=== PATIENT | female | born 1940 | race African-American/Black ===

== ENCOUNTER 2019-09-04 19:36 | Inpatient (IN) ==
[2019-09-04] MEDS ORDERED: FUROSEMIDE 100 MG/10 ML VIAL IV STA (20:06)
[2019-09-04 20:15] LABS: Basophils % 0.2 % (0.0-0.8); Eosinophils # 0.1 10*3/uL (0.0-0.87); Eosinophils % 0.6 % (0.00-10.9); Immature Granulocytes % 0.5 %; Immature Granulocytes Absolute 0.05 #; Lymphocytes # 0.8 10*3/uL (1.4-4.0); Mean Corpuscular HGB Conc 33.3 GM/DL (32-36); Mean Corpuscular Volume 96.4 FL (87-102); Mean Platelet Volume 10.9 FL (9.6-12.0); Monocytes % 8.6 % (1.7-12.7); Neutrophils % 82.1 % (38.7-73.9); Platelet Count 189 T/CUMM (130-400); Red Blood Count 2.49 MC/CUMM (3.8-5.5); White Blood Count 9.5 T/CUMM (4-12)
[2019-09-04 20:33] LABS: Albumin 3.1 G/DL (3.4-5.0); Bilirubin,Total 0.4 MG/DL (0.2-1.0); Calcium 8.6 MG/DL (8.5-10.1); Osmolality,Calculated 273.5 MOS/KG (273-304); Total Protein 6.9 G/DL (6.4-8.3)
[2019-09-04] MEDS ORDERED: DEXTROSE 50% 25 GM/50 ML VIAL IV STA (20:59)
[2019-09-04] MEDS ORDERED: INSULIN REGULAR 100 UNIT/ML IV STA (21:01)
[2019-09-04] MEDS ORDERED: DEXTROSE 50% 25 GM/50 ML SYRINGE IV ONE (21:27)
[2019-09-04] MEDS ORDERED: ACETAMINOPHEN 325 MG TABLET PO PRN (22:13)
[2019-09-04] MEDS ORDERED: ONDANSETRON 4 MG/2 ML VIAL IV PRN (22:13)
[2019-09-04] MEDS ORDERED: DOCUSATE SODIUM 100 MG CAPSULE PO PRN (22:13)
[2019-09-04] MEDS ORDERED: hydrALAZINE 20 MG/1 ML VIAL IV PRN (22:13)
[2019-09-04] MEDS ORDERED: SODIUM BICARBONATE 50 MEQ/50 ML VIAL IV ONE (22:18)
[2019-09-04] MEDS ORDERED: LORazepam 2 MG/1 ML VIAL IV PRN (22:33)
[2019-09-05 02:17] LABS: Basophils % 0.2 % (0.0-0.8); Eosinophils % 0.4 % (0.00-10.9); Hematocrit 24.3 VOL% (35.7-47.0); Hemoglobin 7.9 GM/DL (12.0-16.0); Immature Granulocytes % 0.5 %; Immature Granulocytes Absolute 0.04 #; Lymphocytes # 0.5 10*3/uL (1.4-4.0); Lymphocytes % 6.2 % (21.3-54.2); Mean Corpuscular HGB Conc 32.5 GM/DL (32-36); Mean Platelet Volume 10.4 FL (9.6-12.0); Monocytes % 8.6 % (1.7-12.7); Neutrophils % 84.1 % (38.7-73.9); Platelet Count 169 T/CUMM (130-400); Red Blood Count 2.48 MC/CUMM (3.8-5.5); Red Cell Distribution Width 14.1 % (9.3-17.3); White Blood Count 8.4 T/CUMM (4-12)
[2019-09-05 02:51] LABS: Calcium 8.7 MG/DL (8.5-10.1); Osmolality,Calculated 272.6 MOS/KG (273-304); Risk Ratio 1.27; Thyroid Stimulating Hormone 17.2 uIU/ml (0.358-3.74); VLDL CHOLESTEROL 9.2 MG/DL
[2019-09-05] MEDS ORDERED: FOLIC ACID 0.4 MG TABLET PO SCH (09:00)
[2019-09-05] MEDS: MULTIVITAMIN (CENTRUM) TABLET PO SCH (09:01)
[2019-09-05] MEDS: THIAMINE 100 MG TABLET PO SCH (09:01)
[2019-09-05 10:26] LABS: CKMB % 1.1 %
[2019-09-05 10:29] LABS: Troponin I 0.046 NG/ML (0.00-0.045)
[2019-09-05] MEDS ORDERED: MAGNESIUM SULF RIDER 2 GM in PREMIX 1 EACH IV ONE (10:46)
[2019-09-05] MEDS: amLODIPine 10 MG TABLET PO SCH (11:33)
[2019-09-05] MEDS: SODIUM BICARBONATE 650 MG TABLET PO SCH ×2 (12:23→20:22)
[2019-09-05 13:13] LABS: Apearance,Urine Slightly Hazy (Clear); Bacteria,Urine Occasional /HPF (Few); Bilirubin,Urine Negative (Negative); Blood, Urine Negative (Negative); Glucose,Urine (UA) Negative (Negative); Hyaline Casts,Urine 5 /LPF (0-3); Ketones,Urine Negative (Negative); Mucus,Urine Occasional /LPF (Occasional); Nitrite,Urine Negative (Negative); Protein,Urine Negative; Squamous Epithelial Cell,Urine Occasional /HPF (0-10); Urine Color Yellow (Yellow); Urine Urobilinogen < 2.0 EU/DL (0.2-1.0); WBC,Urine 10 /HPF (0-6)
[2019-09-05 14:06] LABS: Microalbum Ur Quant Random 78.9 MG/L (0-20); Microalbum/Creat Ratio Random 125.2 RATIO (0-30)
[2019-09-05] MEDS: FERROUS SULFATE 325 MG TABLET PO SCH ×2 (14:43→20:23)
[2019-09-05] MEDS: hydrALAZINE 25 MG TABLET PO SCH ×2 (14:43→20:23)
[2019-09-05] MEDS: cloNIDine 0.1 MG TABLET PO SCH ×2 (14:43→20:23)
[2019-09-05] MEDS: cefTRIAXone 1,000 MG in SYRINGE 1 EACH IV SCH (15:29)
[2019-09-05] MEDS: DULoxetine 30 MG CAPSULE PO SCH (20:22)
[2019-09-05] MEDS: METOPROLOL TARTRATE 50 MG TABLET PO SCH (20:23)
[2019-09-06 04:56] LABS: Basophils % 0.1 % (0.0-0.8); Eosinophils # 0.2 10*3/uL (0.0-0.87); Eosinophils % 2.5 % (0.00-10.9); Hematocrit 22.5 VOL% (35.7-47.0); Hemoglobin 7.6 GM/DL (12.0-16.0); Immature Granulocytes % 0.6 %; Immature Granulocytes Absolute 0.04 #; Lymphocytes % 13.7 % (21.3-54.2); Mean Corpuscular HGB Conc 33.8 GM/DL (32-36); Mean Corpuscular Volume 95.3 FL (87-102); Mean Platelet Volume 10.5 FL (9.6-12.0); Neutrophils % 72.1 % (38.7-73.9); Platelet Count 159 T/CUMM (130-400); Red Blood Count 2.36 MC/CUMM (3.8-5.5); Red Cell Distribution Width 14.1 % (9.3-17.3); White Blood Count 7.1 T/CUMM (4-12)
[2019-09-06 05:19] LABS: Osmolality,Calculated 284.9 MOS/KG (273-304)
[2019-09-06] MEDS: LEVOTHYROXINE 25 MCG TABLET PO SCH (06:22)
[2019-09-06] MEDS: hydrALAZINE 25 MG TABLET PO SCH ×3 (09:47→21:00)
[2019-09-06] MEDS: DULoxetine 30 MG CAPSULE PO SCH ×2 (09:47→21:00)
[2019-09-06] MEDS: FOLIC ACID 1 MG TABLET PO SCH (09:47)
[2019-09-06] MEDS: THIAMINE 100 MG TABLET PO SCH (09:47)
[2019-09-06] MEDS: MULTIVITAMIN (CENTRUM) TABLET PO SCH (09:47)
[2019-09-06] MEDS: cloNIDine 0.1 MG TABLET PO SCH ×3 (09:47→21:00)
[2019-09-06] MEDS: FERROUS SULFATE 325 MG TABLET PO SCH ×3 (09:47→21:00)
[2019-09-06] MEDS: SODIUM BICARBONATE 650 MG TABLET PO SCH ×2 (09:47→21:00)
[2019-09-06] MEDS: amLODIPine 10 MG TABLET PO SCH (09:47)
[2019-09-06] MEDS: cefTRIAXone 1,000 MG in SYRINGE 1 EACH IV SCH (15:58)
[2019-09-06] MEDS: LORazepam 2 MG/1 ML VIAL IV PRN (20:33)
[2019-09-06] MEDS: METOPROLOL TARTRATE 50 MG TABLET PO SCH (21:00)
[2019-09-07] MEDS: LORazepam 2 MG/1 ML VIAL IV PRN ×2 (00:20→04:55)
[2019-09-07 03:44] LABS: Basophils % 0.2 % (0.0-0.8); Eosinophils # 0.1 10*3/uL (0.0-0.87); Eosinophils % 0.8 % (0.00-10.9); Hemoglobin 8.1 GM/DL (12.0-16.0); Immature Granulocytes % 0.7 %; Immature Granulocytes Absolute 0.06 #; Lymphocytes # 0.6 10*3/uL (1.4-4.0); Mean Corpuscular HGB Conc 32.4 GM/DL (32-36); Mean Corpuscular Volume 98.8 FL (87-102); Mean Platelet Volume 11.4 FL (9.6-12.0); Monocytes % 9.6 % (1.7-12.7); Neutrophils % 82.7 % (38.7-73.9); Platelet Count 188 T/CUMM (130-400); Red Blood Count 2.53 MC/CUMM (3.8-5.5); Red Cell Distribution Width 14.2 % (9.3-17.3); White Blood Count 9.2 T/CUMM (4-12)
[2019-09-07 03:59] LABS: Calcium 9.6 MG/DL (8.5-10.1); Osmolality,Calculated 288.7 MOS/KG (273-304)
[2019-09-07] MEDS: LEVOTHYROXINE 25 MCG TABLET PO SCH (05:40)
[2019-09-07] MEDS: hydrALAZINE 25 MG TABLET PO SCH ×3 (09:54→21:16)
[2019-09-07] MEDS: MULTIVITAMIN (CENTRUM) TABLET PO SCH (09:55)
[2019-09-07] MEDS: cloNIDine 0.1 MG TABLET PO SCH ×3 (09:55→21:16)
[2019-09-07] MEDS: DULoxetine 30 MG CAPSULE PO SCH ×2 (09:55→21:16)
[2019-09-07] MEDS: FOLIC ACID 1 MG TABLET PO SCH (09:56)
[2019-09-07] MEDS: amLODIPine 10 MG TABLET PO SCH (09:56)
[2019-09-07] MEDS: FERROUS SULFATE 325 MG TABLET PO SCH ×3 (09:56→21:16)
[2019-09-07] MEDS: THIAMINE 100 MG TABLET PO SCH (09:57)
[2019-09-07] MEDS: SODIUM BICARBONATE 650 MG TABLET PO SCH ×2 (09:57→21:17)
[2019-09-07 13:09] LABS: Apearance,Urine CLEAR (Clear); Bacteria,Urine Occasional /HPF (Few); Bilirubin,Urine Negative (Negative); Blood, Urine Negative (Negative); Glucose,Urine (UA) Negative (Negative); Ketones,Urine 5 mg/dL (Negative); Nitrite,Urine Negative (Negative); Protein,Urine 30 MG/DL; RBC,Urine 1 /HPF (0-4); Squamous Epithelial Cell,Urine Occasional /HPF (0-10); Urine Color Yellow (Yellow); Urine Specific Gravity 1.012 (1.001-1.035); Urine Urobilinogen < 2.0 EU/DL (0.2-1.0); WBC,Urine 2 /HPF (0-6)
[2019-09-07] MEDS: cefTRIAXone 1,000 MG in SYRINGE 1 EACH IV SCH (16:59)
[2019-09-07] MEDS: METOPROLOL TARTRATE 50 MG TABLET PO SCH (21:16)
[2019-09-08 03:20] LABS: Basophils % 0.4 % (0.0-0.8); Eosinophils # 0.2 10*3/uL (0.0-0.87); Eosinophils % 2.6 % (0.00-10.9); Hematocrit 24.5 VOL% (35.7-47.0); Hemoglobin 7.7 GM/DL (12.0-16.0); Immature Granulocytes % 0.4 %; Immature Granulocytes Absolute 0.03 #; Lymphocytes # 0.6 10*3/uL (1.4-4.0); Lymphocytes % 9.1 % (21.3-54.2); Mean Corpuscular HGB Conc 31.4 GM/DL (32-36); Mean Platelet Volume 11.6 FL (9.6-12.0); Monocytes % 10.5 % (1.7-12.7); Red Blood Count 2.45 MC/CUMM (3.8-5.5); Red Cell Distribution Width 14.4 % (9.3-17.3)
[2019-09-08 03:21] LABS: Platelet Count 147 T/CUMM (130-400)
[2019-09-08 03:40] LABS: Calcium 9.4 MG/DL (8.5-10.1); Osmolality,Calculated 294.2 MOS/KG (273-304)
[2019-09-08 03:42] LABS: Hypochromasia 2+; Platelet Estimate Normal
[2019-09-08] MEDS: LEVOTHYROXINE 25 MCG TABLET PO SCH (06:16)
[2019-09-08] MEDS ORDERED: chlordiazePOXIDE 10 MG CAPSULE PO PRN (08:18)
[2019-09-08] MEDS: THIAMINE 100 MG TABLET PO SCH (08:27)
[2019-09-08] MEDS: hydrALAZINE 25 MG TABLET PO SCH ×3 (08:27→21:49)
[2019-09-08] MEDS: SODIUM BICARBONATE 650 MG TABLET PO SCH ×2 (08:27→21:49)
[2019-09-08] MEDS: FOLIC ACID 1 MG TABLET PO SCH (08:27)
[2019-09-08] MEDS: amLODIPine 10 MG TABLET PO SCH (08:28)
[2019-09-08] MEDS: DULoxetine 30 MG CAPSULE PO SCH ×2 (08:28→21:49)
[2019-09-08] MEDS: MULTIVITAMIN (CENTRUM) TABLET PO SCH (08:28)
[2019-09-08] MEDS: FERROUS SULFATE 325 MG TABLET PO SCH ×3 (08:28→21:49)
[2019-09-08] MEDS: cloNIDine 0.1 MG TABLET PO SCH ×3 (08:28→21:49)
[2019-09-08] MEDS: cefTRIAXone 1,000 MG in SYRINGE 1 EACH IV SCH (15:46)
[2019-09-08] MEDS: METOPROLOL TARTRATE 50 MG TABLET PO SCH (21:49)
[2019-09-09] MEDS: LEVOTHYROXINE 25 MCG TABLET PO SCH (05:31)
[2019-09-09 08:42] LABS: Basophils % 0.6 % (0.0-0.8); Eosinophils # 0.1 10*3/uL (0.0-0.87); Eosinophils % 2.7 % (0.00-10.9); Hematocrit 23.5 VOL% (35.7-47.0); Hemoglobin 7.3 GM/DL (12.0-16.0); Immature Granulocytes % 0.4 %; Immature Granulocytes Absolute 0.02 #; Lymphocytes # 0.8 10*3/uL (1.4-4.0); Lymphocytes % 15.7 % (21.3-54.2); Mean Corpuscular HGB Conc 31.1 GM/DL (32-36); Mean Corpuscular Volume 101.3 FL (87-102); Mean Platelet Volume 10.8 FL (9.6-12.0); Monocytes % 11.4 % (1.7-12.7); Neutrophils % 69.2 % (38.7-73.9); Platelet Count 185 T/CUMM (130-400); Red Blood Count 2.32 MC/CUMM (3.8-5.5); Red Cell Distribution Width 14.6 % (9.3-17.3); White Blood Count 5.1 T/CUMM (4-12)
[2019-09-09 08:58] LABS: Calcium 9.2 MG/DL (8.5-10.1); Osmolality,Calculated 300.7 MOS/KG (273-304)
[2019-09-09] MEDS: amLODIPine 10 MG TABLET PO SCH (09:07)
[2019-09-09] MEDS: FOLIC ACID 1 MG TABLET PO SCH (09:07)
[2019-09-09] MEDS: FERROUS SULFATE 325 MG TABLET PO SCH (09:07)
[2019-09-09] MEDS: THIAMINE 100 MG TABLET PO SCH (09:07)
[2019-09-09] MEDS: cloNIDine 0.1 MG TABLET PO SCH (09:07)
[2019-09-09] MEDS: SODIUM BICARBONATE 650 MG TABLET PO SCH (09:07)
[2019-09-09] MEDS: DULoxetine 30 MG CAPSULE PO SCH (09:07)
[2019-09-09] MEDS: hydrALAZINE 25 MG TABLET PO SCH (09:07)
[2019-09-09] MEDS: MULTIVITAMIN (CENTRUM) TABLET PO SCH (09:07)
[2019-09-09 12:01] VITALS: BP 141/68
== END 2019-09-09 12:53 | disposition home health service (06) | DRG 291 ==
LOC: EDUNIT# → EDBD → N.ED 19:36 → N.EDINP 21:53 → N.TELES 22:25
PROVIDERS: ADMIT Internal Medicine; ATTEND Internal Medicine

== ENCOUNTER 2019-10-21 16:55 | Inpatient (IN) ==
[2019-10-21] MEDS ORDERED: MORPHINE 4 MG/1 ML VIAL IV STA (17:25)
[2019-10-21] MEDS ORDERED: FUROSEMIDE 40 MG/4 ML VIAL IV STA (17:25)
[2019-10-21] MEDS ORDERED: THIAMINE 200 MG/2 ML VIAL IV STA (17:27)
[2019-10-21 17:58] LABS: Basophils % 0.1 % (0.0-0.8); Eosinophils % 0.1 % (0.00-10.9); Hematocrit 25.5 VOL% (35.7-47.0); Hemoglobin 8.3 GM/DL (12.0-16.0); Immature Granulocytes % 1.2 %; Immature Granulocytes Absolute 0.14 #; Lymphocytes % 8.7 % (21.3-54.2); Mean Corpuscular HGB Conc 32.5 GM/DL (32-36); Mean Corpuscular Volume 93.4 FL (87-102); Monocytes % 3.1 % (1.7-12.7); Neutrophils % 86.8 % (38.7-73.9); Platelet Count 254 T/CUMM (130-400); Red Blood Count 2.73 MC/CUMM (3.8-5.5); Red Cell Distribution Width 15.9 % (9.3-17.3); White Blood Count 11.5 T/CUMM (4-12)
[2019-10-21] MEDS ORDERED: PIPERACILLIN/TAZOBACTAM 3,375 MG in SODIUM CHLORIDE 0.9% 100 ML IV STA (18:02)
[2019-10-21 18:19] LABS: Albumin 2.4 G/DL (3.4-5.0); Bilirubin,Total 0.4 MG/DL (0.2-1.0); Calcium 8.2 MG/DL (8.5-10.1); Osmolality,Calculated 286.4 MOS/KG (273-304); Total Protein 6.5 G/DL (6.4-8.3)
[2019-10-21 18:24] LABS: PT Patient Result 10.4 SECS (9.8-11.9); Partial Thromboplastin Time 23.9 SECS (23.9-33.8)
[2019-10-21] MEDS ORDERED: MAGNESIUM SULF RIDER 4 GM in PREMIX 1 EACH IV PRN (19:45)
[2019-10-21] MEDS ORDERED: ACETAMINOPHEN 325 MG TABLET PO PRN (19:45)
[2019-10-21] MEDS ORDERED: ONDANSETRON 4 MG/2 ML VIAL IV PRN (19:45)
[2019-10-21] MEDS ORDERED: GLUCAGON 1 MG VIAL IM PRN ×2 (19:45)
[2019-10-21] MEDS ORDERED: MAGNESIUM SULF RIDER 2 GM in PREMIX 1 EACH IV PRN (19:45)
[2019-10-21] MEDS ORDERED: DEXTROSE 10% 250 ML BAG IV PRN (19:45)
[2019-10-21] MEDS ORDERED: DEXTROSE 50% 25 GM/50 ML VIAL IV PRN (19:45)
[2019-10-21] MEDS: INSULIN LISPRO 100 UNIT/ML SUBCUT SCH (22:10)
[2019-10-21] MEDS: HEPARIN 5,000 UNIT/1 ML VIAL SUBCUT SCH (22:40)
[2019-10-21] MEDS: cefTRIAXone 1,000 MG in SYRINGE 1 EACH IV SCH (22:41)
[2019-10-21] MEDS: LORazepam 2 MG/1 ML VIAL IV PRN (22:44)
[2019-10-21] MEDS: AZITHROMYCIN INJ 500 MG in SODIUM CHLORIDE 0.9% 250 ML IV SCH (22:46)
[2019-10-22 06:36] LABS: Basophils % 0.3 % (0.0-0.8); Eosinophils % 0.1 % (0.00-10.9); Immature Granulocytes Absolute 0.08 #; Lymphocytes # 0.9 10*3/uL (1.4-4.0); Mean Corpuscular HGB Conc 33.3 GM/DL (32-36); Mean Corpuscular Volume 93.4 FL (87-102); Mean Platelet Volume 10.6 FL (9.6-12.0); Monocytes % 1.9 % (1.7-12.7); Neutrophils % 85.7 % (38.7-73.9); Platelet Count 197 T/CUMM (130-400); Red Blood Count 2.57 MC/CUMM (3.8-5.5); Red Cell Distribution Width 15.7 % (9.3-17.3)
[2019-10-22 07:06] LABS: Calcium 8.4 MG/DL (8.5-10.1); Osmolality,Calculated 288.8 MOS/KG (273-304); Risk Ratio 1.54; VLDL CHOLESTEROL 23.6 MG/DL
[2019-10-22] MEDS ORDERED: FUROSEMIDE 20 MG/2 ML VIAL IV SCH (08:00)
[2019-10-22] MEDS: PANTOPRAZOLE 40 MG TABLET PO SCH (08:40)
[2019-10-22] MEDS: INSULIN LISPRO 100 UNIT/ML SUBCUT SCH ×4 (08:42→21:43)
[2019-10-22] MEDS: HEPARIN 5,000 UNIT/1 ML VIAL SUBCUT SCH ×2 (08:43→20:49)
[2019-10-22] MEDS: guaiFENesin/DM ER 600-30 MG TABLET PO SCH ×2 (09:55→20:50)
[2019-10-22] MEDS: LORazepam 2 MG/1 ML VIAL IV PRN ×2 (10:55→20:51)
[2019-10-22] MEDS: AZITHROMYCIN INJ 500 MG in SODIUM CHLORIDE 0.9% 250 ML IV SCH (20:50)
[2019-10-22] MEDS ORDERED: VECURONIUM 10 MG VIAL IV ONE (21:14)
[2019-10-22] MEDS ORDERED: ROCURONIUM 100 MG/10 ML VIAL IV ONE (21:15)
[2019-10-22] MEDS ORDERED: ETOMIDATE 20 MG/10 ML VIAL IV ONE (21:15)
[2019-10-22] MEDS: METOPROLOL TARTRATE 50 MG TABLET PO SCH (21:53)
[2019-10-22] MEDS ORDERED: METOPROLOL TARTRATE 5 MG/5 ML VIAL IV ONE ×2 (22:06→22:09)
[2019-10-22] MEDS: cefTRIAXone 1,000 MG in SYRINGE 1 EACH IV SCH (22:19)
[2019-10-23] MEDS: LORazepam 2 MG/1 ML VIAL IV PRN ×3 (00:20→09:00)
[2019-10-23] MEDS: ALBUTEROL INHALER 18 GM INH SCH ×5 (00:22→20:12)
[2019-10-23] MEDS ORDERED: cloNIDine 0.1 MG TABLET PO ONE (02:41)
[2019-10-23] MEDS ORDERED: HALOPERIDOL 5 MG/ML AMP IV ONE (04:29)
[2019-10-23] MEDS ORDERED: LABETALOL 20 MG/4 ML SYRINGE IV PRN (04:30)
[2019-10-23] MEDS ORDERED: HALOPERIDOL 5 MG/ML AMP ONE (04:33)
[2019-10-23] MEDS: LEVOTHYROXINE 25 MCG TABLET PO SCH (05:39)
[2019-10-23 08:26] LABS: ABG Base Excess 11.9 MMOL/L (-2.5-2.5); ABG HCO3 36.2 MMOL/L (20-26); ABG Oxygen Saturation 83.9 % (95-100); ABG PCO2 46.3 MM HG (35-48); ABG PH 7.511 (7.35-7.45); ABG PO2 47.4 MM HG (80-95); ABG TCO2 37.6 MMOL/L (23-27); Allen Test Positive; Pt O2 Delivery Device Other
[2019-10-23] MEDS: INSULIN LISPRO 100 UNIT/ML SUBCUT SCH ×3 (08:30→17:24)
[2019-10-23] MEDS: HEPARIN 5,000 UNIT/1 ML VIAL SUBCUT SCH ×2 (08:33→20:12)
[2019-10-23] MEDS: LABETALOL 20 MG/4 ML SYRINGE IV PRN ×2 (08:34→09:20)
[2019-10-23] MEDS ORDERED: AZITHROMYCIN 250 MG TABLET PO SCH (09:00)
[2019-10-23] MEDS ORDERED: FUROSEMIDE 40 MG/4 ML VIAL IV ONE (09:22)
[2019-10-23 09:30] LABS: Apearance,Urine CLEAR (Clear); Bilirubin,Urine Negative (Negative); Blood, Urine Moderate mg/dL (Negative); Glucose,Urine (UA) Negative (Negative); Ketones,Urine Negative (Negative); Nitrite,Urine Negative (Negative); Protein,Urine 100 MG/DL; RBC,Urine 57 /HPF (0-4); Squamous Epithelial Cell,Urine Occasional /HPF (0-10); Urine Color Straw (Yellow); Urine Specific Gravity 1.008 (1.001-1.035); Urine Urobilinogen < 2.0 EU/DL (0.2-1.0); WBC,Urine 27 /HPF (0-6)
[2019-10-23] MEDS: PIPERACILLIN/TAZOBACTAM 3,375 MG in SODIUM CHLORIDE 0.9% 100 ML IV SCH ×2 (10:03→21:18)
[2019-10-23] MEDS: amLODIPine 10 MG TABLET PO SCH (10:23)
[2019-10-23] MEDS: guaiFENesin/DM ER 600-30 MG TABLET PO SCH ×2 (10:23→20:12)
[2019-10-23] MEDS: PANTOPRAZOLE 40 MG TABLET PO SCH (10:24)
[2019-10-23 11:03] LABS: Basophils % 0.2 % (0.0-0.8); Eosinophils % 0.1 % (0.00-10.9); Hemoglobin 9.2 GM/DL (12.0-16.0); Immature Granulocytes % 1.1 %; Immature Granulocytes Absolute 0.16 #; Lymphocytes # 0.6 10*3/uL (1.4-4.0); Lymphocytes % 4.1 % (21.3-54.2); Mean Corpuscular HGB Conc 31.7 GM/DL (32-36); Mean Platelet Volume 11.9 FL (9.6-12.0); Monocytes % 1.5 % (1.7-12.7); Platelet Count 210 T/CUMM (130-400); Red Blood Count 2.99 MC/CUMM (3.8-5.5); White Blood Count 14.4 T/CUMM (4-12)
[2019-10-23] MEDS: HALOPERIDOL 5 MG/ML AMP IV PRN ×2 (11:05→22:50)
[2019-10-23 11:23] LABS: Anisocytosis 1+; Band Neutrophils 16 % (0-10); Hypochromasia 1+; Lymphocytes 4 % (20-55); Macrocytosis 1+; Platelet Estimate Normal; Segmented Neutrophils 78 % (50-85); Total Cells Counted 100
[2019-10-23] MEDS ORDERED: FUROSEMIDE 40 MG/4 ML VIAL IV SCH (11:30)
[2019-10-23 11:38] LABS: Albumin 2.2 G/DL (3.4-5.0); Bilirubin,Total 0.6 MG/DL (0.2-1.0); Calcium 9.3 MG/DL (8.5-10.1); Osmolality,Calculated 287.7 MOS/KG (273-304); Total Protein 7.4 G/DL (6.4-8.3)
[2019-10-23] MEDS ORDERED: VANCOMYCIN INJ 1,250 MG in SODIUM CHLORIDE 0.9% 250 ML IV ONE (15:00)
[2019-10-23] MEDS: methylPREDNISolone SOD SUC 125 MG/2 ML VIAL IV SCH ×2 (15:30→21:18)
[2019-10-23] MEDS: PANTOPRAZOLE 40 MG VIAL IV SCH (20:12)
[2019-10-23] MEDS: METOPROLOL TARTRATE 50 MG TABLET PO SCH (20:12)
[2019-10-24] MEDS: INSULIN LISPRO 100 UNIT/ML SUBCUT SCH ×5 (00:42→23:58)
[2019-10-24] MEDS: ALBUTEROL INHALER 18 GM INH SCH ×4 (00:42→18:24)
[2019-10-24] MEDS: methylPREDNISolone SOD SUC 125 MG/2 ML VIAL IV SCH ×3 (06:15→21:15)
[2019-10-24] MEDS: LEVOTHYROXINE 25 MCG TABLET PO SCH (06:15)
[2019-10-24] MEDS: HALOPERIDOL 5 MG/ML AMP IV PRN ×2 (06:45→21:35)
[2019-10-24 07:34] LABS: Calcium 9.7 MG/DL (8.5-10.1); Osmolality,Calculated 299.4 MOS/KG (273-304)
[2019-10-24] MEDS: guaiFENesin/DM ER 600-30 MG TABLET PO SCH ×2 (08:22→20:50)
[2019-10-24] MEDS: amLODIPine 10 MG TABLET PO SCH (08:22)
[2019-10-24] MEDS: PANTOPRAZOLE 40 MG VIAL IV SCH (08:23)
[2019-10-24] MEDS: HEPARIN 5,000 UNIT/1 ML VIAL SUBCUT SCH (08:26)
[2019-10-24] MEDS ORDERED: VANCOMYCIN INJ 1,250 MG in SODIUM CHLORIDE 0.9% 250 ML IV PRN (09:00)
[2019-10-24] MEDS: PIPERACILLIN/TAZOBACTAM 3,375 MG in SODIUM CHLORIDE 0.9% 100 ML IV SCH (09:48)
[2019-10-24] MEDS: metOLazone 5 MG TABLET PO SCH (11:30)
[2019-10-24] MEDS: ENOXAPARIN 100 MG/ML SYRINGE SUBCUT SCH (18:24)
[2019-10-24] MEDS: METOPROLOL TARTRATE 50 MG TABLET PO SCH (20:50)
[2019-10-24] MEDS: MEROPENEM 500 MG in SODIUM CHLORIDE 0.9% 100 ML IV SCH (21:14)
[2019-10-25] MEDS: ALBUTEROL INHALER 18 GM INH SCH ×4 (00:40→18:05)
[2019-10-25 03:35] LABS: ABG Base Excess 8.9 MMOL/L (-2.5-2.5); ABG HCO3 33.6 MMOL/L (20-26); ABG Oxygen Saturation 97.6 % (95-100); ABG PCO2 47.6 MM HG (35-48); ABG PH 7.466 (7.35-7.45); ABG PO2 108.5 MM HG (80-95); Allen Test Positive; Pt O2 Delivery Device BIPAP
[2019-10-25] MEDS: INSULIN LISPRO 100 UNIT/ML SUBCUT SCH ×3 (07:23→17:24)
[2019-10-25 07:33] LABS: Basophils % 0.1 % (0.0-0.8); Hematocrit 26.7 VOL% (35.7-47.0); Hemoglobin 8.5 GM/DL (12.0-16.0); Immature Granulocytes % 0.7 %; Immature Granulocytes Absolute 0.12 #; Lymphocytes # 0.6 10*3/uL (1.4-4.0); Lymphocytes % 3.4 % (21.3-54.2); Mean Corpuscular HGB Conc 31.8 GM/DL (32-36); Mean Corpuscular Volume 95.4 FL (87-102); Mean Platelet Volume 11.7 FL (9.6-12.0); Monocytes % 2.5 % (1.7-12.7); Neutrophils % 93.3 % (38.7-73.9); Platelet Count 183 T/CUMM (130-400); Red Cell Distribution Width 16.1 % (9.3-17.3); White Blood Count 18.2 T/CUMM (4-12)
[2019-10-25 07:38] LABS: Calcium 9.7 MG/DL (8.5-10.1); Osmolality,Calculated 307.1 MOS/KG (273-304)
[2019-10-25] MEDS: methylPREDNISolone SOD SUC 125 MG/2 ML VIAL IV SCH ×3 (07:50→21:04)
[2019-10-25] MEDS: LEVOTHYROXINE 25 MCG TABLET PO SCH (07:56)
[2019-10-25 07:58] LABS: Anisocytosis 1+; Band Neutrophils 5 % (0-10); Lymphocytes 4 % (20-55); Macrocytosis 1+; Platelet Estimate Normal; Segmented Neutrophils 87 % (50-85); Total Cells Counted 100
[2019-10-25] MEDS: guaiFENesin/DM ER 600-30 MG TABLET PO SCH ×2 (08:24→21:04)
[2019-10-25] MEDS: amLODIPine 10 MG TABLET PO SCH (08:25)
[2019-10-25] MEDS: metOLazone 5 MG TABLET PO SCH (08:25)
[2019-10-25] MEDS: PANTOPRAZOLE 40 MG VIAL IV SCH (08:27)
[2019-10-25] MEDS: MEROPENEM 500 MG in SODIUM CHLORIDE 0.9% 100 ML IV SCH ×2 (08:34→21:04)
[2019-10-25] MEDS: METOPROLOL TARTRATE 50 MG TABLET PO SCH ×2 (11:20→21:04)
[2019-10-25] MEDS: ENOXAPARIN 100 MG/ML SYRINGE SUBCUT SCH (17:32)
[2019-10-26] MEDS: INSULIN LISPRO 100 UNIT/ML SUBCUT SCH ×4 (00:09→17:54)
[2019-10-26] MEDS: ALBUTEROL INHALER 18 GM INH SCH ×5 (00:09→18:50)
[2019-10-26] MEDS: HALOPERIDOL 5 MG/ML AMP IV PRN ×2 (02:14→05:37)
[2019-10-26] MEDS: LABETALOL 20 MG/4 ML SYRINGE IV PRN (05:37)
[2019-10-26] MEDS: methylPREDNISolone SOD SUC 125 MG/2 ML VIAL IV SCH (05:38)
[2019-10-26] MEDS: LEVOTHYROXINE 25 MCG TABLET PO SCH (05:42)
[2019-10-26 05:52] LABS: Basophils % 0.1 % (0.0-0.8); Hematocrit 27.1 VOL% (35.7-47.0); Hemoglobin 8.5 GM/DL (12.0-16.0); Immature Granulocytes % 1.4 %; Immature Granulocytes Absolute 0.22 #; Lymphocytes # 0.6 10*3/uL (1.4-4.0); Lymphocytes % 3.6 % (21.3-54.2); Mean Corpuscular HGB Conc 31.4 GM/DL (32-36); Mean Corpuscular Volume 96.8 FL (87-102); Mean Platelet Volume 11.8 FL (9.6-12.0); Monocytes % 3.1 % (1.7-12.7); Neutrophils % 91.8 % (38.7-73.9); Platelet Count 193 T/CUMM (130-400); Red Cell Distribution Width 16.4 % (9.3-17.3); White Blood Count 16.2 T/CUMM (4-12)
[2019-10-26 06:22] LABS: Hypochromasia 1+; Lymphocytes 2 % (20-55); Myelocytes 1 %; Segmented Neutrophils 96 % (50-85); Total Cells Counted 100
[2019-10-26 06:23] LABS: Macrocytosis 1+; Platelet Estimate Adequate; Target Cells 1+
[2019-10-26] MEDS: MEROPENEM 500 MG in SODIUM CHLORIDE 0.9% 100 ML IV SCH (09:06)
[2019-10-26] MEDS: PANTOPRAZOLE 40 MG VIAL IV SCH (09:27)
[2019-10-26] MEDS: METOPROLOL TARTRATE 50 MG TABLET PO SCH ×2 (09:28→20:49)
[2019-10-26] MEDS: metOLazone 5 MG TABLET PO SCH (09:28)
[2019-10-26] MEDS: guaiFENesin/DM ER 600-30 MG TABLET PO SCH ×2 (09:28→20:49)
[2019-10-26] MEDS: amLODIPine 10 MG TABLET PO SCH (09:28)
[2019-10-26] MEDS ORDERED: cloNIDine 0.3 MG/24 HR PATCH TRANSDERM SCH (16:26)
[2019-10-26] MEDS: ENOXAPARIN 100 MG/ML SYRINGE SUBCUT SCH (17:26)
[2019-10-26 18:27] LABS: Osmolality,Calculated 319.8 MOS/KG (273-304)
[2019-10-27] MEDS: ALBUTEROL INHALER 18 GM INH SCH ×4 (00:23→17:24)
[2019-10-27] MEDS: INSULIN LISPRO 100 UNIT/ML SUBCUT SCH ×5 (00:23→23:27)
[2019-10-27 03:46] LABS: ABG Base Excess 5.7 MMOL/L (-2.5-2.5); ABG HCO3 29.5 MMOL/L (20-26); ABG Oxygen Saturation 94.4 % (95-100); ABG PCO2 45.4 MM HG (35-48); ABG PH 7.437 (7.35-7.45); ABG PO2 74.3 MM HG (80-95); ABG TCO2 28.2 MMOL/L (23-27)
[2019-10-27 05:37] LABS: Basophils % 0.1 % (0.0-0.8); Hematocrit 26.3 VOL% (35.7-47.0); Hemoglobin 8.1 GM/DL (12.0-16.0); Immature Granulocytes % 2.2 %; Immature Granulocytes Absolute 0.39 #; Lymphocytes # 1.1 10*3/uL (1.4-4.0); Lymphocytes % 6.1 % (21.3-54.2); Mean Corpuscular HGB Conc 30.8 GM/DL (32-36); Mean Corpuscular Volume 98.1 FL (87-102); Mean Platelet Volume 12.7 FL (9.6-12.0); Monocytes % 5.3 % (1.7-12.7); Neutrophils % 86.3 % (38.7-73.9); Platelet Count 188 T/CUMM (130-400); Red Blood Count 2.68 MC/CUMM (3.8-5.5); Red Cell Distribution Width 16.9 % (9.3-17.3); White Blood Count 17.9 T/CUMM (4-12)
[2019-10-27 05:52] LABS: Calcium 9.7 MG/DL (8.5-10.1); Osmolality,Calculated 322.7 MOS/KG (273-304)
[2019-10-27] MEDS: LEVOTHYROXINE 25 MCG TABLET PO SCH (05:53)
[2019-10-27 06:22] LABS: Anisocytosis 1+; Band Neutrophils 1 % (0-10); Hypochromasia 1+; Lymphocytes 2 % (20-55); Macrocytosis 1+; Segmented Neutrophils 96 % (50-85); Target Cells 1+; Total Cells Counted 100
[2019-10-27 06:23] LABS: Acanthocytes Few; Ovalocytes Slight; Platelet Estimate Adequate
[2019-10-27] MEDS ORDERED: SODIUM CHLORIDE 0.9% 1,000 ML IV PRN (09:47)
[2019-10-27] MEDS: MEROPENEM 500 MG in SODIUM CHLORIDE 0.9% 100 ML IV SCH (10:25)
[2019-10-27] MEDS: METOPROLOL TARTRATE 50 MG TABLET PO SCH ×2 (10:25→20:33)
[2019-10-27] MEDS: metOLazone 5 MG TABLET PO SCH (10:25)
[2019-10-27] MEDS: amLODIPine 10 MG TABLET PO SCH (10:25)
[2019-10-27] MEDS: guaiFENesin/DM ER 600-30 MG TABLET PO SCH ×2 (10:25→20:34)
[2019-10-27] MEDS: PANTOPRAZOLE 40 MG VIAL IV SCH (11:53)
[2019-10-27] MEDS: HALOPERIDOL 5 MG/ML AMP IV PRN ×2 (12:14→16:45)
[2019-10-27] MEDS: ENOXAPARIN 100 MG/ML SYRINGE SUBCUT SCH (17:24)
[2019-10-28] MEDS: ALBUTEROL INHALER 18 GM INH SCH ×4 (00:50→18:32)
[2019-10-28] MEDS: INSULIN LISPRO 100 UNIT/ML SUBCUT SCH ×3 (05:09→18:20)
[2019-10-28 05:10] LABS: Basophils % 0.2 % (0.0-0.8); Eosinophils % 0.1 % (0.00-10.9); Hematocrit 28.9 VOL% (35.7-47.0); Lymphocytes # 1.3 10*3/uL (1.4-4.0); Lymphocytes % 6.2 % (21.3-54.2); Mean Corpuscular HGB Conc 31.1 GM/DL (32-36); Mean Corpuscular Volume 96.7 FL (87-102); Mean Platelet Volume 12.4 FL (9.6-12.0); Monocytes % 3.1 % (1.7-12.7); Neutrophils % 88.4 % (38.7-73.9); Platelet Count 206 T/CUMM (130-400); Red Blood Count 2.99 MC/CUMM (3.8-5.5); Red Cell Distribution Width 16.5 % (9.3-17.3); White Blood Count 20.2 T/CUMM (4-12)
[2019-10-28 05:26] LABS: Calcium 9.8 MG/DL (8.5-10.1); Osmolality,Calculated 341.6 MOS/KG (273-304)
[2019-10-28] MEDS: LEVOTHYROXINE 25 MCG TABLET PO SCH (05:33)
[2019-10-28 05:57] LABS: Eosinophils 1 % (0-10); Hypochromasia 2+; Lymphocytes 3 % (20-55); Ovalocytes Slight; Platelet Estimate Adequate; Segmented Neutrophils 93 % (50-85); Total Cells Counted 100
[2019-10-28 05:58] LABS: Macrocytosis Slight
[2019-10-28] MEDS: MEROPENEM 500 MG in SODIUM CHLORIDE 0.9% 100 ML IV SCH (08:27)
[2019-10-28] MEDS ORDERED: LORazepam 2 MG/1 ML VIAL ONE (09:31)
[2019-10-28] MEDS: LORazepam 2 MG/1 ML VIAL IV PRN (09:51)
[2019-10-28] MEDS: metOLazone 5 MG TABLET PO SCH (10:00)
[2019-10-28] MEDS: METOPROLOL TARTRATE 50 MG TABLET PO SCH ×2 (10:00→20:18)
[2019-10-28] MEDS: PANTOPRAZOLE 40 MG VIAL IV SCH (10:00)
[2019-10-28] MEDS: guaiFENesin/DM ER 600-30 MG TABLET PO SCH (10:00)
[2019-10-28] MEDS: amLODIPine 10 MG TABLET PO SCH (10:00)
[2019-10-28] MEDS ORDERED: SUCCINYLCHOLINE 200 MG/10 ML VIAL ONE (12:41)
[2019-10-28] MEDS ORDERED: ETOMIDATE 20 MG/10 ML VIAL IV ONE ×2 (16:29→16:35)
[2019-10-28] MEDS ORDERED: SUCCINYLCHOLINE 200 MG/10 ML VIAL IV ONE (16:35)
[2019-10-28] MEDS ORDERED: SODIUM CHLORIDE 0.9% 1,000 ML IV ONE (18:23)
[2019-10-28] MEDS: ENOXAPARIN 100 MG/ML SYRINGE SUBCUT SCH (18:44)
[2019-10-28 23:10] LABS: Apearance,Urine CLOUDY (Clear); Bacteria,Urine Few /HPF (Few); Bilirubin,Urine Negative (Negative); Blood, Urine Moderate mg/dL (Negative); Glucose,Urine (UA) Negative (Negative); Hyaline Casts,Urine 5 /LPF (0-3); Ketones,Urine 5 mg/dL (Negative); Mucus,Urine Occasional /LPF (Occasional); Nitrite,Urine Negative (Negative); Protein,Urine 30 MG/DL; RBC,Urine 9 /HPF (0-4); Squamous Epithelial Cell,Urine Occasional /HPF (0-10); Urine Color Amber (Yellow); Urine Specific Gravity 1.015 (1.001-1.035); Urine Urobilinogen < 2.0 EU/DL (0.2-1.0); WBC,Urine 181 /HPF (0-6)
[2019-10-29] MEDS: INSULIN LISPRO 100 UNIT/ML SUBCUT SCH ×5 (00:25→23:50)
[2019-10-29] MEDS: ALBUTEROL INHALER 18 GM INH SCH ×4 (00:44→21:07)
[2019-10-29] MEDS ORDERED: SODIUM CHLORIDE 0.9% 500 ML IV ONE (02:22)
[2019-10-29 03:37] LABS: Allen Test Positive; Pt O2 Delivery Device Ventilator
[2019-10-29 03:40] LABS: ABG Base Excess 3.8 MMOL/L (-2.5-2.5); ABG HCO3 27.8 MMOL/L (20-26); ABG Oxygen Saturation 95.9 % (95-100); ABG PH 7.407 (7.35-7.45); ABG PO2 79.7 MM HG (80-95); ABG TCO2 27.2 MMOL/L (23-27)
[2019-10-29 04:13] LABS: Calcium 8.9 MG/DL (8.5-10.1); Osmolality,Calculated 344.4 MOS/KG (273-304)
[2019-10-29] MEDS: LEVOTHYROXINE 25 MCG TABLET PO SCH (05:32)
[2019-10-29] MEDS: PANTOPRAZOLE 40 MG VIAL IV SCH (08:17)
[2019-10-29] MEDS: MEROPENEM 500 MG in SODIUM CHLORIDE 0.9% 100 ML IV SCH (08:18)
[2019-10-29] MEDS: METOPROLOL TARTRATE 50 MG TABLET PO SCH ×2 (08:22→21:07)
[2019-10-29] MEDS: metOLazone 5 MG TABLET PO SCH (08:24)
[2019-10-29] MEDS: amLODIPine 10 MG TABLET PO SCH (08:24)
[2019-10-29] MEDS ORDERED: methylPREDNISolone SOD SUC 40 MG/1 ML VIAL IV SCH (11:00)
[2019-10-29 16:16] LABS: Basophils % 0.1 % (0.0-0.8); Eosinophils # 0.2 10*3/uL (0.0-0.87); Eosinophils % 1.1 % (0.00-10.9); Hematocrit 20.6 VOL% (35.7-47.0); Immature Granulocytes % 1.6 %; Immature Granulocytes Absolute 0.25 #; Lymphocytes # 0.5 10*3/uL (1.4-4.0); Lymphocytes % 3.2 % (21.3-54.2); Mean Corpuscular HGB Conc 30.1 GM/DL (32-36); Mean Platelet Volume 13.6 FL (9.6-12.0); Platelet Count 150 T/CUMM (130-400); Red Blood Count 2.08 MC/CUMM (3.8-5.5); Red Cell Distribution Width 16.9 % (9.3-17.3); White Blood Count 15.8 T/CUMM (4-12)
[2019-10-29 16:18] LABS: Hemoglobin 6.2 GM/DL (12.0-16.0)
[2019-10-29] MEDS ORDERED: SODIUM CHLORIDE 0.9% 1,000 ML IV PRN (16:26)
[2019-10-29] MEDS: NOREPINEPHRINE 16 MG in SODIUM CHLORIDE 0.9% 234 ML IV PRN (16:53)
[2019-10-29 16:58] LABS: Anisocytosis 1+; Eosinophils 2 % (0-10); Hypochromasia Slight; Lymphocytes 4 % (20-55); Segmented Neutrophils 93 % (50-85); Total Cells Counted 100
[2019-10-29 16:59] LABS: Microcytosis Slight; Platelet Estimate Adequate
[2019-10-29] MEDS: ENOXAPARIN 100 MG/ML SYRINGE SUBCUT SCH ×2 (17:49→17:57)
[2019-10-30] MEDS: INSULIN LISPRO 100 UNIT/ML SUBCUT SCH ×3 (01:00→17:32)
[2019-10-30] MEDS: ALBUTEROL INHALER 18 GM INH SCH ×4 (02:11→20:07)
[2019-10-30 04:39] LABS: Basophils % 0.1 % (0.0-0.8); Hematocrit 23.2 VOL% (35.7-47.0); Hemoglobin 7.1 GM/DL (12.0-16.0); Immature Granulocytes Absolute 0.45 #; Lymphocytes % 4.4 % (21.3-54.2); Mean Corpuscular HGB Conc 30.6 GM/DL (32-36); Mean Corpuscular Volume 97.9 FL (87-102); Mean Platelet Volume 13.5 FL (9.6-12.0); Neutrophils % 92.5 % (38.7-73.9); Platelet Count 234 T/CUMM (130-400); Red Blood Count 2.37 MC/CUMM (3.8-5.5); Red Cell Distribution Width 16.9 % (9.3-17.3)
[2019-10-30 05:29] LABS: ABG Base Excess 1.2 MMOL/L (-2.5-2.5); ABG HCO3 25.6 MMOL/L (20-26); ABG PCO2 41.3 MM HG (35-48); ABG PH 7.406 (7.35-7.45); ABG TCO2 24.7 MMOL/L (23-27)
[2019-10-30] MEDS: LEVOTHYROXINE 25 MCG TABLET PO SCH (06:18)
[2019-10-30 07:09] LABS: Calcium 9.5 MG/DL (8.5-10.1)
[2019-10-30 07:28] LABS: Band Neutrophils 1 % (0-10); Lymphocytes 5 % (20-55); Segmented Neutrophils 92 % (50-85); Total Cells Counted 100
[2019-10-30 07:29] LABS: Anisocytosis 1+; Hypochromasia 2+; Macrocytosis 1+; Platelet Estimate Normal; Target Cells 2+
[2019-10-30] MEDS: METOPROLOL TARTRATE 50 MG TABLET PO SCH ×2 (08:14→20:07)
[2019-10-30] MEDS: amLODIPine 10 MG TABLET PO SCH (08:14)
[2019-10-30] MEDS: metOLazone 5 MG TABLET PO SCH (08:14)
[2019-10-30] MEDS: MEROPENEM 500 MG in SODIUM CHLORIDE 0.9% 100 ML IV SCH (08:26)
[2019-10-30] MEDS: PANTOPRAZOLE 40 MG VIAL IV SCH (08:27)
[2019-10-30] MEDS: methylPREDNISolone SOD SUC 40 MG/1 ML VIAL IV SCH (17:26)
[2019-10-30] MEDS: ENOXAPARIN 100 MG/ML SYRINGE SUBCUT SCH (17:31)
[2019-10-31] MEDS: INSULIN LISPRO 100 UNIT/ML SUBCUT SCH ×4 (00:53→17:48)
[2019-10-31] MEDS: ALBUTEROL INHALER 18 GM INH SCH ×5 (00:54→18:20)
[2019-10-31 03:13] LABS: Basophils % 0.1 % (0.0-0.8); Hematocrit 21.9 VOL% (35.7-47.0); Hemoglobin 6.8 GM/DL (12.0-16.0); Immature Granulocytes % 2.3 %; Immature Granulocytes Absolute 0.57 #; Lymphocytes # 0.8 10*3/uL (1.4-4.0); Lymphocytes % 3.2 % (21.3-54.2); Mean Corpuscular HGB Conc 31.1 GM/DL (32-36); Mean Corpuscular Volume 97.3 FL (87-102); Mean Platelet Volume 13.4 FL (9.6-12.0); Monocytes % 1.2 % (1.7-12.7); NRBC # 0.06 10*3/uL; Neutrophils % 93.2 % (38.7-73.9); Platelet Count 220 T/CUMM (130-400); Red Blood Count 2.25 MC/CUMM (3.8-5.5); Red Cell Distribution Width 16.8 % (9.3-17.3); White Blood Count 25.1 T/CUMM (4-12)
[2019-10-31 03:37] LABS: Albumin 1.6 G/DL (3.4-5.0); Bilirubin,Total 0.6 MG/DL (0.2-1.0); Calcium 9.5 MG/DL (8.5-10.1); Osmolality,Calculated 341.7 MOS/KG (273-304); Total Protein 6.9 G/DL (6.4-8.3)
[2019-10-31 03:42] LABS: Calcium 9.4 MG/DL (8.5-10.1); Osmolality,Calculated 341.7 MOS/KG (273-304)
[2019-10-31] MEDS: methylPREDNISolone SOD SUC 40 MG/1 ML VIAL IV SCH ×2 (03:50→16:11)
[2019-10-31 04:15] LABS: Lymphocytes 4 % (20-55); Metamyelocytes 1 %; Segmented Neutrophils 94 % (50-85); Total Cells Counted 100
[2019-10-31 04:17] LABS: Hypochromasia 1+; Platelet Estimate Normal; Target Cells Few
[2019-10-31 04:26] LABS: Allen Test Positive; Pt O2 Delivery Device Ventilator
[2019-10-31 04:28] LABS: ABG Base Excess -0.2 MMOL/L (-2.5-2.5); ABG HCO3 24.8 MMOL/L (20-26); ABG Oxygen Saturation 98.7 % (95-100); ABG PCO2 42.2 MM HG (35-48); ABG PH 7.387 (7.35-7.45); ABG PO2 144.3 MM HG (80-95); ABG TCO2 26.1 MMOL/L (23-27)
[2019-10-31] MEDS: LEVOTHYROXINE 25 MCG TABLET PO SCH (05:41)
[2019-10-31] MEDS ORDERED: SODIUM CHLORIDE 0.9% 1,000 ML IV PRN (08:00)
[2019-10-31] MEDS: MEROPENEM 500 MG in SODIUM CHLORIDE 0.9% 100 ML IV SCH (08:10)
[2019-10-31] MEDS: PANTOPRAZOLE 40 MG VIAL IV SCH (08:10)
[2019-10-31] MEDS: amLODIPine 10 MG TABLET PO SCH (10:10)
[2019-10-31] MEDS: METOPROLOL TARTRATE 50 MG TABLET PO SCH (10:10)
[2019-10-31] MEDS ORDERED: cloNIDine 0.1 MG TABLET PO PRN (11:16)
[2019-10-31] MEDS: DESITIN 4OZ/NYSTATIN 15 GRAM MIXTURE PASTE TOP SCH ×2 (12:29→20:51)
[2019-10-31 13:42] LABS: Hepatitis B Core IgM Quant 0.13 Index; Hepatitis B Surface Ag Quant < 0.10 Index; Hepatitis B Surface Ag Result Negative (Negative); Hepatitis C Virus Ab Result Negative (Negative)
[2019-10-31] MEDS: ZINC SULFATE 220 MG CAPSULE PO SCH (16:11)
[2019-10-31] MEDS: NOREPINEPHRINE 16 MG in SODIUM CHLORIDE 0.9% 234 ML IV PRN (16:14)
[2019-10-31] MEDS: ENOXAPARIN 100 MG/ML SYRINGE SUBCUT SCH (17:48)
[2019-10-31] MEDS: HYDROXYCHLOROQUINE 200 MG TABLET PO SCH (20:51)
[2019-11-01] MEDS: INSULIN LISPRO 100 UNIT/ML SUBCUT SCH ×4 (00:35→17:34)
[2019-11-01] MEDS: ALBUTEROL INHALER 18 GM INH SCH ×4 (00:35→17:45)
[2019-11-01] MEDS: methylPREDNISolone SOD SUC 40 MG/1 ML VIAL IV SCH ×2 (03:05→16:09)
[2019-11-01 04:36] LABS: ABG Base Excess 0.7 MMOL/L (-2.5-2.5); ABG HCO3 25.1 MMOL/L (20-26); ABG Oxygen Saturation 97.2 % (95-100); ABG PCO2 42.9 MM HG (35-48); ABG PH 7.388 (7.35-7.45); ABG PO2 89.6 MM HG (80-95); ABG TCO2 24.2 MMOL/L (23-27); Allen Test Positive; Pt O2 Delivery Device Ventilator
[2019-11-01 05:31] LABS: Basophils % 0.1 % (0.0-0.8); Eosinophils % 0.1 % (0.00-10.9); Hemoglobin 7.2 GM/DL (12.0-16.0); Immature Granulocytes % 4.7 %; Immature Granulocytes Absolute 0.94 #; Lymphocytes # 0.9 10*3/uL (1.4-4.0); Lymphocytes % 4.5 % (21.3-54.2); Mean Corpuscular HGB Conc 32.7 GM/DL (32-36); Mean Corpuscular Volume 91.3 FL (87-102); Mean Platelet Volume 13.1 FL (9.6-12.0); NRBC # 0.05 10*3/uL; Neutrophils % 87.6 % (38.7-73.9); Platelet Count 148 T/CUMM (130-400); Red Blood Count 2.41 MC/CUMM (3.8-5.5); Red Cell Distribution Width 16.5 % (9.3-17.3); White Blood Count 20.1 T/CUMM (4-12)
[2019-11-01] MEDS: LEVOTHYROXINE 25 MCG TABLET PO SCH (05:32)
[2019-11-01 05:35] LABS: Calcium 8.4 MG/DL (8.5-10.1)
[2019-11-01 05:54] LABS: Hypochromasia 1+; Lymphocytes 4 % (20-55); Nucleated Red Blood Cells 1 (0-5); Platelet Estimate Adequate; Segmented Neutrophils 94 % (50-85); Total Cells Counted 100
[2019-11-01] MEDS: MEROPENEM 500 MG in SODIUM CHLORIDE 0.9% 100 ML IV SCH (08:51)
[2019-11-01] MEDS: DESITIN 4OZ/NYSTATIN 15 GRAM MIXTURE PASTE TOP SCH ×2 (08:53→20:59)
[2019-11-01] MEDS: PANTOPRAZOLE 40 MG VIAL IV SCH (08:53)
[2019-11-01] MEDS: HYDROXYCHLOROQUINE 200 MG TABLET PO SCH ×2 (08:54→20:59)
[2019-11-01] MEDS: ENOXAPARIN 100 MG/ML SYRINGE SUBCUT SCH (17:45)
[2019-11-02] MEDS: ALBUTEROL INHALER 18 GM INH SCH ×4 (00:33→20:29)
[2019-11-02] MEDS: INSULIN LISPRO 100 UNIT/ML SUBCUT SCH ×4 (00:33→17:28)
[2019-11-02] MEDS: methylPREDNISolone SOD SUC 40 MG/1 ML VIAL IV SCH (03:42)
[2019-11-02 04:19] LABS: Allen Test Positive; Pt O2 Delivery Device Ventilator
[2019-11-02 04:24] LABS: ABG Base Excess -3.9 MMOL/L (-2.5-2.5); ABG HCO3 21.1 MMOL/L (20-26); ABG Oxygen Saturation 95.6 % (95-100); ABG PCO2 40.5 MM HG (35-48); ABG PH 7.335 (7.35-7.45); ABG PO2 78.1 MM HG (80-95); ABG TCO2 20.2 MMOL/L (23-27)
[2019-11-02 06:10] LABS: Basophils % 0.1 % (0.0-0.8); Eosinophils % 0.1 % (0.00-10.9); Hematocrit 21.2 VOL% (35.7-47.0); Hemoglobin 6.8 GM/DL (12.0-16.0); Immature Granulocytes % 4.8 %; Immature Granulocytes Absolute 1.01 #; Lymphocytes # 0.7 10*3/uL (1.4-4.0); Lymphocytes % 3.2 % (21.3-54.2); Mean Corpuscular HGB Conc 32.1 GM/DL (32-36); Mean Corpuscular Volume 92.6 FL (87-102); Mean Platelet Volume 12.9 FL (9.6-12.0); Monocytes % 1.5 % (1.7-12.7); NRBC # 0.03 10*3/uL; Neutrophils % 90.3 % (38.7-73.9); Platelet Count 152 T/CUMM (130-400); Red Blood Count 2.29 MC/CUMM (3.8-5.5); Red Cell Distribution Width 16.2 % (9.3-17.3); White Blood Count 21.2 T/CUMM (4-12)
[2019-11-02] MEDS: LEVOTHYROXINE 25 MCG TABLET PO SCH (06:12)
[2019-11-02 06:29] LABS: Calcium 8.4 MG/DL (8.5-10.1); Osmolality,Calculated 298.2 MOS/KG (273-304)
[2019-11-02 06:35] LABS: Hypochromasia 1+; Lymphocytes 4 % (20-55); Segmented Neutrophils 92 % (50-85); Total Cells Counted 100
[2019-11-02 06:36] LABS: Anisocytosis 1+; Microcytosis 1+; Ovalocytes Slight; Platelet Estimate Adequate; Target Cells Slight; Tear Drop Cells Slight
[2019-11-02] MEDS ORDERED: SODIUM CHLORIDE 0.9% 1,000 ML IV PRN (07:41)
[2019-11-02] MEDS: DESITIN 4OZ/NYSTATIN 15 GRAM MIXTURE PASTE TOP SCH ×2 (08:24→20:30)
[2019-11-02] MEDS: HYDROXYCHLOROQUINE 200 MG TABLET PO SCH ×2 (08:24→20:30)
[2019-11-02] MEDS: PANTOPRAZOLE 40 MG VIAL IV SCH (08:24)
[2019-11-02] MEDS: MULTIVITAMIN LIQUID (CENTRUM) 60 ML BOTTLE PO SCH (08:24)
[2019-11-02] MEDS: ZINC SULFATE 220 MG CAPSULE PO SCH (15:56)
[2019-11-02] MEDS: ENOXAPARIN 100 MG/ML SYRINGE SUBCUT SCH (17:30)
[2019-11-03] MEDS: INSULIN LISPRO 100 UNIT/ML SUBCUT SCH ×5 (00:21→23:34)
[2019-11-03] MEDS: ALBUTEROL INHALER 18 GM INH SCH ×4 (02:21→20:15)
[2019-11-03 03:38] LABS: Allen Test Positive; Pt O2 Delivery Device Ventilator
[2019-11-03 03:43] LABS: ABG Base Excess -1.8 MMOL/L (-2.5-2.5); ABG HCO3 22.9 MMOL/L (20-26); ABG Oxygen Saturation 95.1 % (95-100); ABG PCO2 36.4 MM HG (35-48); ABG PH 7.401 (7.35-7.45); ABG PO2 75.1 MM HG (80-95); ABG TCO2 20.8 MMOL/L (23-27)
[2019-11-03 04:46] LABS: Calcium 8.9 MG/DL (8.5-10.1); Osmolality,Calculated 285.2 MOS/KG (273-304)
[2019-11-03] MEDS: LEVOTHYROXINE 25 MCG TABLET PO SCH (05:31)
[2019-11-03] MEDS: HYDROXYCHLOROQUINE 200 MG TABLET PO SCH ×2 (08:19→20:15)
[2019-11-03] MEDS: PANTOPRAZOLE 40 MG VIAL IV SCH (08:19)
[2019-11-03] MEDS: MULTIVITAMIN LIQUID (CENTRUM) 60 ML BOTTLE PO SCH (08:19)
[2019-11-03] MEDS: DESITIN 4OZ/NYSTATIN 15 GRAM MIXTURE PASTE TOP SCH ×2 (08:20→20:16)
[2019-11-03] MEDS: methylPREDNISolone SOD SUC 40 MG/1 ML VIAL IV SCH (08:20)
[2019-11-03 08:52] LABS: Basophils # 0.1 10*3/uL (0.0-0.2); Basophils % 0.4 % (0.0-0.8); Eosinophils # 0.2 10*3/uL (0.0-0.87); Eosinophils % 0.7 % (0.00-10.9); Hematocrit 28.1 VOL% (35.7-47.0); Hemoglobin 8.8 GM/DL (12.0-16.0); Immature Granulocytes % 9.1 %; Immature Granulocytes Absolute 2.31 #; Lymphocytes # 0.8 10*3/uL (1.4-4.0); Mean Corpuscular HGB Conc 31.3 GM/DL (32-36); Mean Platelet Volume 12.1 FL (9.6-12.0); Monocytes % 1.2 % (1.7-12.7); NRBC # 0.07 10*3/uL; Neutrophils % 85.6 % (38.7-73.9); Platelet Count 196 T/CUMM (130-400); Red Blood Count 3.02 MC/CUMM (3.8-5.5); Red Cell Distribution Width 17.3 % (9.3-17.3); White Blood Count 25.5 T/CUMM (4-12)
[2019-11-03] MEDS: NOREPINEPHRINE 8 MG in SODIUM CHLORIDE 0.9% 242 ML IV PRN (09:13)
[2019-11-03 09:28] LABS: Band Neutrophils 3 % (0-10); Lymphocytes 2 % (20-55); Myelocytes 1 %; Nucleated Red Blood Cells 1 (0-5); Segmented Neutrophils 93 % (50-85); Total Cells Counted 100
[2019-11-03 09:29] LABS: Hypochromasia 1+; Microcytosis 1+; Ovalocytes Slight; Platelet Estimate Adequate
[2019-11-03] MEDS: MENTHOL/ZINC OXIDE OINT 71 GM JAR TOP SCH (09:43)
[2019-11-03] MEDS: ASPIRIN 325 MG TABLET PO SCH (11:40)
[2019-11-03] MEDS ORDERED: ENOXAPARIN 100 MG/ML SYRINGE SUBCUT SCH (12:00)
[2019-11-03] MEDS ORDERED: VANCOMYCIN INJ 1,250 MG in SODIUM CHLORIDE 0.9% 250 ML IV PRN (17:00)
[2019-11-03] MEDS ORDERED: VANCOMYCIN INJ 1,250 MG in SODIUM CHLORIDE 0.9% 250 ML IV ONE (17:00)
[2019-11-03] MEDS: PIPERACILLIN/TAZOBACTAM 3,375 MG in SODIUM CHLORIDE 0.9% 100 ML IV SCH (18:32)
[2019-11-04] MEDS: ALBUTEROL INHALER 18 GM INH SCH ×4 (01:34→21:21)
[2019-11-04 04:05] LABS: ABG Base Excess -4.6 MMOL/L (-2.5-2.5); ABG HCO3 20.6 MMOL/L (20-26); ABG Oxygen Saturation 99.1 % (95-100); ABG PCO2 36.7 MM HG (35-48); ABG PH 7.354 (7.35-7.45); ABG TCO2 19.1 MMOL/L (23-27); Allen Test Positive; Pt O2 Delivery Device Ventilator
[2019-11-04 04:44] LABS: Basophils % 0.1 % (0.0-0.8); Eosinophils # 0.2 10*3/uL (0.0-0.87); Hematocrit 24.7 VOL% (35.7-47.0); Hemoglobin 7.8 GM/DL (12.0-16.0); Immature Granulocytes % 9.1 %; Immature Granulocytes Absolute 1.93 #; Lymphocytes # 0.9 10*3/uL (1.4-4.0); Lymphocytes % 4.1 % (21.3-54.2); Mean Corpuscular HGB Conc 31.6 GM/DL (32-36); Mean Corpuscular Volume 92.5 FL (87-102); Mean Platelet Volume 12.2 FL (9.6-12.0); Monocytes % 1.6 % (1.7-12.7); NRBC # 0.03 10*3/uL; Neutrophils % 84.1 % (38.7-73.9); Platelet Count 198 T/CUMM (130-400); Red Blood Count 2.67 MC/CUMM (3.8-5.5); Red Cell Distribution Width 17.1 % (9.3-17.3); White Blood Count 21.2 T/CUMM (4-12)
[2019-11-04 05:05] LABS: Band Neutrophils 2 % (0-10); Hypochromasia 1+; Lymphocytes 4 % (20-55); Microcytosis Slight; Ovalocytes Slight; Platelet Estimate Adequate; Segmented Neutrophils 89 % (50-85); Total Cells Counted 100
[2019-11-04 05:26] LABS: Albumin 1.3 G/DL (3.4-5.0); Bilirubin,Total 0.4 MG/DL (0.2-1.0); Calcium 9.3 MG/DL (8.5-10.1); Osmolality,Calculated 291.4 MOS/KG (273-304); Total Protein 6.3 G/DL (6.4-8.3)
[2019-11-04 05:29] LABS: CKMB % 3.6 %
[2019-11-04 05:31] LABS: Troponin I 14.7 NG/ML (0.00-0.045)
[2019-11-04] MEDS: INSULIN LISPRO 100 UNIT/ML SUBCUT SCH ×3 (05:49→18:20)
[2019-11-04] MEDS: PIPERACILLIN/TAZOBACTAM 3,375 MG in SODIUM CHLORIDE 0.9% 100 ML IV SCH ×2 (05:49→19:19)
[2019-11-04] MEDS: LEVOTHYROXINE 25 MCG TABLET PO SCH (05:50)
[2019-11-04] MEDS: PANTOPRAZOLE 40 MG VIAL IV SCH (09:20)
[2019-11-04] MEDS: methylPREDNISolone SOD SUC 40 MG/1 ML VIAL IV SCH (09:20)
[2019-11-04] MEDS: ASPIRIN 325 MG TABLET PO SCH (09:21)
[2019-11-04] MEDS: MULTIVITAMIN LIQUID (CENTRUM) 60 ML BOTTLE PO SCH (09:21)
[2019-11-04] MEDS: HYDROXYCHLOROQUINE 200 MG TABLET PO SCH ×2 (09:21→21:21)
[2019-11-04] MEDS: MENTHOL/ZINC OXIDE OINT 71 GM JAR TOP SCH (09:22)
[2019-11-04] MEDS: DESITIN 4OZ/NYSTATIN 15 GRAM MIXTURE PASTE TOP SCH ×2 (09:22→21:21)
[2019-11-04] MEDS: HEPARIN DRIP 25,000 UNITS/500 ML PREMIX IV SCH (09:31)
[2019-11-04] MEDS: ZINC SULFATE 220 MG CAPSULE PO SCH (15:50)
[2019-11-05] MEDS: INSULIN LISPRO 100 UNIT/ML SUBCUT SCH ×4 (00:41→18:26)
[2019-11-05] MEDS: ALBUTEROL INHALER 18 GM INH SCH ×4 (03:24→18:05)
[2019-11-05 04:21] LABS: Basophils % 0.2 % (0.0-0.8); Eosinophils # 0.2 10*3/uL (0.0-0.87); Eosinophils % 1.3 % (0.00-10.9); Hematocrit 22.8 VOL% (35.7-47.0); Hemoglobin 7.4 GM/DL (12.0-16.0); Immature Granulocytes % 7.7 %; Immature Granulocytes Absolute 1.38 #; Lymphocytes # 0.7 10*3/uL (1.4-4.0); Lymphocytes % 3.8 % (21.3-54.2); Mean Corpuscular HGB Conc 32.5 GM/DL (32-36); Mean Corpuscular Volume 89.8 FL (87-102); Mean Platelet Volume 12.8 FL (9.6-12.0); Monocytes % 1.6 % (1.7-12.7); NRBC # 0.04 10*3/uL; Neutrophils % 85.4 % (38.7-73.9); Platelet Count 193 T/CUMM (130-400); Red Blood Count 2.54 MC/CUMM (3.8-5.5); Red Cell Distribution Width 16.8 % (9.3-17.3)
[2019-11-05 04:36] LABS: Calcium 8.6 MG/DL (8.5-10.1); Osmolality,Calculated 283.1 MOS/KG (273-304)
[2019-11-05] MEDS: LEVOTHYROXINE 25 MCG TABLET PO SCH (05:37)
[2019-11-05] MEDS: PIPERACILLIN/TAZOBACTAM 3,375 MG in SODIUM CHLORIDE 0.9% 100 ML IV SCH ×2 (05:37→18:26)
[2019-11-05 05:44] LABS: ABG Base Excess -1.6 MMOL/L (-2.5-2.5); ABG HCO3 23.1 MMOL/L (20-26); ABG Oxygen Saturation 99.8 % (95-100); ABG PCO2 39.1 MM HG (35-48); ABG PH 7.382 (7.35-7.45); ABG TCO2 20.7 MMOL/L (23-27); Allen Test Positive; Pt O2 Delivery Device Ventilator
[2019-11-05 07:57] LABS: Band Neutrophils 3 % (0-10); Hypochromasia 3+; Lymphocytes 6 % (20-55); Metamyelocytes 2 %; Myelocytes 1 %; Polychromasia Slight; Segmented Neutrophils 85 % (50-85); Spherocytes Few; Total Cells Counted 100
[2019-11-05 07:58] LABS: Atypical Lymphocytes Few; Giant Platelets Few; Platelet Estimate Adequate
[2019-11-05] MEDS: HYDROXYCHLOROQUINE 200 MG TABLET PO SCH (09:05)
[2019-11-05] MEDS: ASPIRIN 325 MG TABLET PO SCH (09:05)
[2019-11-05] MEDS: MULTIVITAMIN LIQUID (CENTRUM) 60 ML BOTTLE PO SCH (09:05)
[2019-11-05] MEDS: methylPREDNISolone SOD SUC 40 MG/1 ML VIAL IV SCH (09:05)
[2019-11-05] MEDS: DESITIN 4OZ/NYSTATIN 15 GRAM MIXTURE PASTE TOP SCH ×2 (09:05→20:47)
[2019-11-05] MEDS: PANTOPRAZOLE 40 MG VIAL IV SCH (09:05)
[2019-11-05] MEDS: MENTHOL/ZINC OXIDE OINT 71 GM JAR TOP SCH (09:05)
[2019-11-05] MEDS: HEPARIN DRIP 25,000 UNITS/500 ML PREMIX IV SCH (09:06)
[2019-11-05] MEDS ORDERED: POTASSIUM CHLORIDE 20 MEQ/15 ML UDCUP PER TUBE PRN (10:34)
[2019-11-05] MEDS ORDERED: POTASSIUM CHLORIDE 20 MEQ/15 ML UDCUP PER TUBE ONE (12:46)
[2019-11-05] MEDS ORDERED: VANCOMYCIN INJ 1,250 MG in SODIUM CHLORIDE 0.9% 250 ML IV ONE (13:00)
[2019-11-05] MEDS: ATORVASTATIN 40 MG TABLET PO SCH (20:47)
[2019-11-05] MEDS: carvediloL 3.125 MG TABLET PO SCH (20:47)
[2019-11-06] MEDS: INSULIN LISPRO 100 UNIT/ML SUBCUT SCH ×4 (01:05→18:12)
[2019-11-06] MEDS: ALBUTEROL INHALER 18 GM INH SCH ×4 (01:07→18:12)
[2019-11-06 04:40] LABS: ABG Base Excess -3.6 MMOL/L (-2.5-2.5); ABG HCO3 20.7 MMOL/L (20-26); ABG Oxygen Saturation 98.9 % (95-100); ABG PCO2 33.6 MM HG (35-48); ABG PH 7.407 (7.35-7.45); ABG PO2 176.1 MM HG (80-95); ABG TCO2 21.7 MMOL/L (23-27); Allen Test Positive; Pt O2 Delivery Device Ventilator
[2019-11-06 05:39] LABS: Basophils % 0.2 % (0.0-0.8); Eosinophils # 0.2 10*3/uL (0.0-0.87); Eosinophils % 1.5 % (0.00-10.9); Hematocrit 21.6 VOL% (35.7-47.0); Immature Granulocytes % 7.3 %; Lymphocytes # 0.7 10*3/uL (1.4-4.0); Lymphocytes % 4.6 % (21.3-54.2); Mean Corpuscular HGB Conc 32.4 GM/DL (32-36); Mean Corpuscular Volume 89.6 FL (87-102); Mean Platelet Volume 12.6 FL (9.6-12.0); Monocytes % 2.4 % (1.7-12.7); NRBC # 0.06 10*3/uL; Platelet Count 227 T/CUMM (130-400); Red Blood Count 2.41 MC/CUMM (3.8-5.5); Red Cell Distribution Width 17.1 % (9.3-17.3); White Blood Count 15.1 T/CUMM (4-12)
[2019-11-06] MEDS: PIPERACILLIN/TAZOBACTAM 3,375 MG in SODIUM CHLORIDE 0.9% 100 ML IV SCH ×2 (05:44→17:00)
[2019-11-06] MEDS: LEVOTHYROXINE 25 MCG TABLET PO SCH (05:45)
[2019-11-06 06:39] LABS: Calcium 8.6 MG/DL (8.5-10.1); Osmolality,Calculated 282.5 MOS/KG (273-304)
[2019-11-06] MEDS: HEPARIN DRIP 25,000 UNITS/500 ML PREMIX IV SCH ×2 (07:41→11:14)
[2019-11-06] MEDS: ASPIRIN 325 MG TABLET PO SCH (08:34)
[2019-11-06] MEDS: carvediloL 3.125 MG TABLET PO SCH ×2 (08:34→20:08)
[2019-11-06] MEDS: methylPREDNISolone SOD SUC 40 MG/1 ML VIAL IV SCH (08:34)
[2019-11-06] MEDS: MULTIVITAMIN LIQUID (CENTRUM) 60 ML BOTTLE PO SCH (08:35)
[2019-11-06] MEDS: MENTHOL/ZINC OXIDE OINT 71 GM JAR TOP SCH (08:35)
[2019-11-06] MEDS: PANTOPRAZOLE 40 MG VIAL IV SCH (08:35)
[2019-11-06] MEDS: DESITIN 4OZ/NYSTATIN 15 GRAM MIXTURE PASTE TOP SCH ×2 (08:35→20:08)
[2019-11-06] MEDS ORDERED: HEPARIN 5,000 UNIT/1 ML VIAL IV PRN (10:01)
[2019-11-06 10:30] LABS: Band Neutrophils 4 % (0-10); Eosinophils 1 % (0-10); Lymphocytes 6 % (20-55); Metamyelocytes 1 %; Myelocytes 2 %; Ovalocytes Few; Segmented Neutrophils 85 % (50-85); Total Cells Counted 100
[2019-11-06 10:31] LABS: Anisocytosis 2+; Hypochromasia 1+; Microcytosis 1+; Polychromasia Slight; Schistocytes Slight
[2019-11-06 10:32] LABS: Platelet Estimate Adequate
[2019-11-06] MEDS: ATORVASTATIN 40 MG TABLET PO SCH (20:08)
[2019-11-07] MEDS: ALBUTEROL INHALER 18 GM INH SCH ×4 (00:26→20:00)
[2019-11-07] MEDS: INSULIN LISPRO 100 UNIT/ML SUBCUT SCH ×4 (00:26→18:05)
[2019-11-07 04:32] LABS: Osmolality,Calculated 283.7 MOS/KG (273-304)
[2019-11-07 04:55] LABS: Basophils % 0.3 % (0.0-0.8); Eosinophils # 0.3 10*3/uL (0.0-0.87); Eosinophils % 1.6 % (0.00-10.9); Hemoglobin 6.9 GM/DL (12.0-16.0); Immature Granulocytes % 8.4 %; Immature Granulocytes Absolute 1.34 #; Lymphocytes # 0.9 10*3/uL (1.4-4.0); Lymphocytes % 5.8 % (21.3-54.2); Mean Corpuscular HGB Conc 31.4 GM/DL (32-36); Mean Corpuscular Volume 91.3 FL (87-102); Mean Platelet Volume 12.2 FL (9.6-12.0); Monocytes % 2.7 % (1.7-12.7); NRBC # 0.09 10*3/uL; Neutrophils % 81.2 % (38.7-73.9); Platelet Count 238 T/CUMM (130-400); Red Blood Count 2.41 MC/CUMM (3.8-5.5); Red Cell Distribution Width 17.1 % (9.3-17.3)
[2019-11-07 05:04] LABS: Allen Test Positive; Pt O2 Delivery Device Ventilator
[2019-11-07 05:11] LABS: ABG HCO3 18.7 MMOL/L (20-26); ABG Oxygen Saturation 99.4 % (95-100); ABG PCO2 33.7 MM HG (35-48); ABG PH 7.337 (7.35-7.45)
[2019-11-07 05:16] LABS: Band Neutrophils 1 % (0-10); Eosinophils 2 % (0-10); Lymphocytes 7 % (20-55); Metamyelocytes 3 %; Segmented Neutrophils 83 % (50-85); Total Cells Counted 100
[2019-11-07 05:17] LABS: Hypochromasia 1+; Microcytosis 1+; Platelet Estimate Normal; Polychromasia Slight
[2019-11-07] MEDS: LEVOTHYROXINE 25 MCG TABLET PO SCH (05:45)
[2019-11-07] MEDS: PIPERACILLIN/TAZOBACTAM 3,375 MG in SODIUM CHLORIDE 0.9% 100 ML IV SCH ×2 (05:45→17:37)
[2019-11-07] MEDS: NOREPINEPHRINE 8 MG in SODIUM CHLORIDE 0.9% 242 ML IV PRN (07:55)
[2019-11-07] MEDS: MULTIVITAMIN LIQUID (CENTRUM) 60 ML BOTTLE PO SCH (08:03)
[2019-11-07] MEDS: ASPIRIN 325 MG TABLET PO SCH (08:03)
[2019-11-07] MEDS: MENTHOL/ZINC OXIDE OINT 71 GM JAR TOP SCH (08:03)
[2019-11-07] MEDS: PANTOPRAZOLE 40 MG VIAL IV SCH (08:04)
[2019-11-07] MEDS: methylPREDNISolone SOD SUC 40 MG/1 ML VIAL IV SCH (08:05)
[2019-11-07] MEDS: DESITIN 4OZ/NYSTATIN 15 GRAM MIXTURE PASTE TOP SCH ×2 (08:05→20:45)
[2019-11-07] MEDS ORDERED: SODIUM CHLORIDE 0.9% 1,000 ML IV PRN (08:58)
[2019-11-07] MEDS: carvediloL 3.125 MG TABLET PO SCH ×2 (09:33→20:45)
[2019-11-07] MEDS: HEPARIN DRIP 25,000 UNITS/500 ML PREMIX IV SCH (10:15)
[2019-11-07] MEDS ORDERED: VANCOMYCIN INJ 750 MG in SODIUM CHLORIDE 0.9% 250 ML IV PRN (17:00)
[2019-11-07] MEDS: ATORVASTATIN 40 MG TABLET PO SCH (20:45)
[2019-11-08] MEDS: INSULIN LISPRO 100 UNIT/ML SUBCUT SCH ×4 (00:40→17:46)
[2019-11-08] MEDS: ALBUTEROL INHALER 18 GM INH SCH ×4 (01:51→19:54)
[2019-11-08 04:52] LABS: Basophils # 0.1 10*3/uL (0.0-0.2); Basophils % 0.5 % (0.0-0.8); Eosinophils # 0.4 10*3/uL (0.0-0.87); Eosinophils % 1.7 % (0.00-10.9); Hemoglobin 8.1 GM/DL (12.0-16.0); Immature Granulocytes % 11.9 %; Immature Granulocytes Absolute 2.52 #; Lymphocytes # 1.2 10*3/uL (1.4-4.0); Lymphocytes % 5.5 % (21.3-54.2); Mean Corpuscular HGB Conc 32.4 GM/DL (32-36); Mean Platelet Volume 12.2 FL (9.6-12.0); Monocytes % 2.3 % (1.7-12.7); NRBC # 0.04 10*3/uL; Neutrophils % 78.1 % (38.7-73.9); Platelet Count 260 T/CUMM (130-400); Red Blood Count 2.81 MC/CUMM (3.8-5.5); Red Cell Distribution Width 17.2 % (9.3-17.3); White Blood Count 21.2 T/CUMM (4-12)
[2019-11-08 05:08] LABS: Osmolality,Calculated 280.4 MOS/KG (273-304)
[2019-11-08 05:21] LABS: Band Neutrophils 2 % (0-10); Hypochromasia Slight; Lymphocytes 10 % (20-55); Microcytosis 1+; Myelocytes 2 %; Platelet Estimate Adequate; Segmented Neutrophils 82 % (50-85); Total Cells Counted 100
[2019-11-08 05:24] LABS: ABG Base Excess -4.1 MMOL/L (-2.5-2.5); ABG HCO3 19.8 MMOL/L (20-26); ABG Oxygen Saturation 98.9 % (95-100); ABG PCO2 31.7 MM HG (35-48); ABG PH 7.414 (7.35-7.45); ABG PO2 164.5 MM HG (80-95); ABG TCO2 20.8 MMOL/L (23-27)
[2019-11-08] MEDS: PIPERACILLIN/TAZOBACTAM 3,375 MG in SODIUM CHLORIDE 0.9% 100 ML IV SCH ×2 (06:13→17:46)
[2019-11-08] MEDS: HEPARIN DRIP 25,000 UNITS/500 ML PREMIX IV SCH ×2 (06:14→09:56)
[2019-11-08] MEDS: LEVOTHYROXINE 25 MCG TABLET PO SCH (06:16)
[2019-11-08] MEDS: methylPREDNISolone SOD SUC 40 MG/1 ML VIAL IV SCH (08:24)
[2019-11-08] MEDS: PANTOPRAZOLE 40 MG VIAL IV SCH (08:25)
[2019-11-08] MEDS: ASPIRIN 325 MG TABLET PO SCH (08:25)
[2019-11-08] MEDS: MULTIVITAMIN LIQUID (CENTRUM) 60 ML BOTTLE PO SCH (08:25)
[2019-11-08] MEDS: carvediloL 3.125 MG TABLET PO SCH ×2 (08:26→20:41)
[2019-11-08] MEDS: MENTHOL/ZINC OXIDE OINT 71 GM JAR TOP SCH (08:27)
[2019-11-08] MEDS: DESITIN 4OZ/NYSTATIN 15 GRAM MIXTURE PASTE TOP SCH ×2 (08:27→20:42)
[2019-11-08] MEDS: NOREPINEPHRINE 8 MG in SODIUM CHLORIDE 0.9% 242 ML IV PRN (09:48)
[2019-11-08] MEDS ORDERED: POTASSIUM CHLORIDE 20 MEQ/15 ML UDCUP PER TUBE ONE (10:30)
[2019-11-08] MEDS: ATORVASTATIN 40 MG TABLET PO SCH (20:41)
[2019-11-09] MEDS: INSULIN LISPRO 100 UNIT/ML SUBCUT SCH ×5 (00:01→23:17)
[2019-11-09] MEDS: ALBUTEROL INHALER 18 GM INH SCH ×4 (00:01→18:00)
[2019-11-09] MEDS: HEPARIN DRIP 25,000 UNITS/500 ML PREMIX IV SCH ×3 (01:32→19:45)
[2019-11-09 03:55] VITALS: BP 124/63
[2019-11-09 04:08] LABS: Allen Test Positive; Pt O2 Delivery Device Ventilator
[2019-11-09 04:10] LABS: ABG Base Excess -3.7 MMOL/L (-2.5-2.5); ABG HCO3 20.7 MMOL/L (20-26); ABG Oxygen Saturation 98.6 % (95-100); ABG PCO2 34.5 MM HG (35-48); ABG PH 7.396 (7.35-7.45); ABG PO2 140.2 MM HG (80-95); ABG TCO2 21.8 MMOL/L (23-27)
[2019-11-09] MEDS: LEVOTHYROXINE 25 MCG TABLET PO SCH (05:52)
[2019-11-09] MEDS: PIPERACILLIN/TAZOBACTAM 3,375 MG in SODIUM CHLORIDE 0.9% 100 ML IV SCH ×2 (05:52→18:16)
[2019-11-09] MEDS: methylPREDNISolone SOD SUC 40 MG/1 ML VIAL IV SCH (09:15)
[2019-11-09] MEDS: PANTOPRAZOLE 40 MG VIAL IV SCH (09:15)
[2019-11-09] MEDS: MENTHOL/ZINC OXIDE OINT 71 GM JAR TOP SCH (09:15)
[2019-11-09] MEDS: DESITIN 4OZ/NYSTATIN 15 GRAM MIXTURE PASTE TOP SCH ×2 (09:15→20:21)
[2019-11-09] MEDS: MULTIVITAMIN LIQUID (CENTRUM) 60 ML BOTTLE PO SCH (09:15)
[2019-11-09] MEDS: ASPIRIN 325 MG TABLET PO SCH (09:15)
[2019-11-09] MEDS: carvediloL 3.125 MG TABLET PO SCH ×2 (09:15→20:20)
[2019-11-09 09:33] LABS: Basophils # 0.1 10*3/uL (0.0-0.2); Basophils % 0.3 % (0.0-0.8); Eosinophils # 0.2 10*3/uL (0.0-0.87); Eosinophils % 1.3 % (0.00-10.9); Hematocrit 23.3 VOL% (35.7-47.0); Hemoglobin 7.3 GM/DL (12.0-16.0); Immature Granulocytes % 14.5 %; Immature Granulocytes Absolute 2.48 #; Lymphocytes % 5.7 % (21.3-54.2); Mean Corpuscular HGB Conc 31.3 GM/DL (32-36); Mean Platelet Volume 11.6 FL (9.6-12.0); Monocytes % 1.5 % (1.7-12.7); Neutrophils % 76.7 % (38.7-73.9); Platelet Count 219 T/CUMM (130-400); Red Blood Count 2.56 MC/CUMM (3.8-5.5); Red Cell Distribution Width 16.9 % (9.3-17.3); White Blood Count 17.2 T/CUMM (4-12)
[2019-11-09 09:48] LABS: Calcium 8.5 MG/DL (8.5-10.1); Osmolality,Calculated 277.4 MOS/KG (273-304)
[2019-11-09 10:09] LABS: Hypochromasia 1+; Microcytosis Slight; Platelet Estimate Adequate
[2019-11-09] MEDS: fentaNYL INJ 1,250 MCG in SODIUM CHLORIDE 0.9% 225 ML IV PRN (14:05)
[2019-11-09] MEDS: NOREPINEPHRINE 8 MG in SODIUM CHLORIDE 0.9% 242 ML IV PRN (19:20)
[2019-11-09] MEDS: ATORVASTATIN 40 MG TABLET PO SCH (20:21)
[2019-11-10] MEDS: ALBUTEROL INHALER 18 GM INH SCH ×4 (01:20→20:00)
[2019-11-10] MEDS: fentaNYL INJ 1,250 MCG in SODIUM CHLORIDE 0.9% 225 ML IV PRN (03:27)
[2019-11-10 04:49] LABS: ABG Base Excess -2.8 MMOL/L (-2.5-2.5); ABG HCO3 22.1 MMOL/L (20-26); ABG Oxygen Saturation 97.4 % (95-100); ABG PCO2 45.2 MM HG (35-48); ABG PH 7.319 (7.35-7.45); ABG PO2 97.3 MM HG (80-95); ABG TCO2 22.1 MMOL/L (23-27); Allen Test Positive; Pt O2 Delivery Device Ventilator
[2019-11-10] MEDS: INSULIN LISPRO 100 UNIT/ML SUBCUT SCH ×4 (06:00→23:48)
[2019-11-10] MEDS: PIPERACILLIN/TAZOBACTAM 3,375 MG in SODIUM CHLORIDE 0.9% 100 ML IV SCH ×2 (06:03→16:20)
[2019-11-10] MEDS: LEVOTHYROXINE 25 MCG TABLET PO SCH (06:03)
[2019-11-10 06:17] LABS: Basophils # 0.1 10*3/uL (0.0-0.2); Basophils % 0.2 % (0.0-0.8); Calcium 8.6 MG/DL (8.5-10.1); Eosinophils # 0.5 10*3/uL (0.0-0.87); Eosinophils % 2.2 % (0.00-10.9); Hematocrit 21.7 VOL% (35.7-47.0); Immature Granulocytes % 8.6 %; Immature Granulocytes Absolute 1.91 #; Lymphocytes # 1.3 10*3/uL (1.4-4.0); Lymphocytes % 5.6 % (21.3-54.2); Mean Corpuscular HGB Conc 32.3 GM/DL (32-36); Mean Corpuscular Volume 89.7 FL (87-102); Mean Platelet Volume 11.5 FL (9.6-12.0); Monocytes % 2.9 % (1.7-12.7); Neutrophils % 80.5 % (38.7-73.9); Osmolality,Calculated 278.2 MOS/KG (273-304); Platelet Count 239 T/CUMM (130-400); Red Blood Count 2.42 MC/CUMM (3.8-5.5); Red Cell Distribution Width 16.4 % (9.3-17.3); White Blood Count 22.3 T/CUMM (4-12)
[2019-11-10 06:41] LABS: Band Neutrophils 1 % (0-10); Eosinophils 3 % (0-10); Hypochromasia 2+; Lymphocytes 7 % (20-55); Microcytosis 1+; Nucleated Red Blood Cells 1 (0-5); Platelet Estimate Adequate; Segmented Neutrophils 88 % (50-85); Total Cells Counted 100
[2019-11-10] MEDS: PANTOPRAZOLE 40 MG VIAL IV SCH (08:46)
[2019-11-10] MEDS: HEPARIN DRIP 25,000 UNITS/500 ML PREMIX IV SCH ×2 (08:46→17:49)
[2019-11-10] MEDS: ASPIRIN 325 MG TABLET PO SCH (08:46)
[2019-11-10] MEDS: MULTIVITAMIN LIQUID (CENTRUM) 60 ML BOTTLE PO SCH (08:46)
[2019-11-10] MEDS: carvediloL 3.125 MG TABLET PO SCH ×2 (08:46→20:00)
[2019-11-10] MEDS: MENTHOL/ZINC OXIDE OINT 71 GM JAR TOP SCH (08:46)
[2019-11-10] MEDS: methylPREDNISolone SOD SUC 40 MG/1 ML VIAL IV SCH (08:47)
[2019-11-10] MEDS: DESITIN 4OZ/NYSTATIN 15 GRAM MIXTURE PASTE TOP SCH ×2 (08:47→20:00)
[2019-11-10] MEDS ORDERED: DEXMEDETOMIDINE 400 MCG in SODIUM CHLORIDE 0.9% 96 ML IV PRN (14:08)
[2019-11-10] MEDS: ATORVASTATIN 40 MG TABLET PO SCH (20:00)
[2019-11-11 02:07] LABS: Basophils % 0.2 % (0.0-0.8); Eosinophils # 0.5 10*3/uL (0.0-0.87); Eosinophils % 2.4 % (0.00-10.9); Hematocrit 21.9 VOL% (35.7-47.0); Hemoglobin 6.8 GM/DL (12.0-16.0); Immature Granulocytes % 10.3 %; Immature Granulocytes Absolute 1.95 #; Lymphocytes # 1.7 10*3/uL (1.4-4.0); Lymphocytes % 9.2 % (21.3-54.2); Mean Corpuscular HGB Conc 31.1 GM/DL (32-36); Mean Corpuscular Volume 92.4 FL (87-102); Mean Platelet Volume 11.4 FL (9.6-12.0); Monocytes % 2.7 % (1.7-12.7); NRBC # 0.02 10*3/uL; Neutrophils % 75.2 % (38.7-73.9); Platelet Count 241 T/CUMM (130-400); Red Blood Count 2.37 MC/CUMM (3.8-5.5); Red Cell Distribution Width 16.7 % (9.3-17.3); White Blood Count 18.9 T/CUMM (4-12)
[2019-11-11] MEDS: ALBUTEROL INHALER 18 GM INH SCH ×4 (02:11→20:23)
[2019-11-11] MEDS ORDERED: METOPROLOL TARTRATE 5 MG/5 ML VIAL IV ONE ×3 (02:40→05:38)
[2019-11-11 02:45] LABS: Calcium 8.7 MG/DL (8.5-10.1); Osmolality,Calculated 281.4 MOS/KG (273-304)
[2019-11-11 03:41] LABS: Eosinophils 2 % (0-10); Lymphocytes 6 % (20-55); Metamyelocytes 2 %; Nucleated Red Blood Cells 1 (0-5); Segmented Neutrophils 87 % (50-85)
[2019-11-11 03:43] LABS: Hypochromasia 2+; Platelet Estimate Normal
[2019-11-11 03:44] LABS: Microcytosis 1+; Polychromasia Few
[2019-11-11 03:45] LABS: Total Cells Counted 100
[2019-11-11 04:47] LABS: ABG Base Excess -4.3 MMOL/L (-2.5-2.5); ABG HCO3 20.8 MMOL/L (20-26); ABG Oxygen Saturation 93.9 % (95-100); ABG PCO2 37.4 MM HG (35-48); ABG PH 7.353 (7.35-7.45); ABG PO2 71.4 MM HG (80-95); ABG TCO2 19.8 MMOL/L (23-27); Allen Test Positive; Pt O2 Delivery Device Ventilator
[2019-11-11] MEDS: INSULIN LISPRO 100 UNIT/ML SUBCUT SCH ×4 (05:28→23:20)
[2019-11-11] MEDS: LEVOTHYROXINE 25 MCG TABLET PO SCH (05:31)
[2019-11-11] MEDS: methylPREDNISolone SOD SUC 40 MG/1 ML VIAL IV SCH (08:10)
[2019-11-11] MEDS: MULTIVITAMIN LIQUID (CENTRUM) 60 ML BOTTLE PO SCH (08:10)
[2019-11-11] MEDS: METOPROLOL TARTRATE 25 MG TABLET PO SCH ×2 (08:10→20:23)
[2019-11-11] MEDS: MENTHOL/ZINC OXIDE OINT 71 GM JAR TOP SCH (08:10)
[2019-11-11] MEDS: ASPIRIN 325 MG TABLET PO SCH (08:10)
[2019-11-11] MEDS: DESITIN 4OZ/NYSTATIN 15 GRAM MIXTURE PASTE TOP SCH ×2 (08:10→20:23)
[2019-11-11] MEDS: PANTOPRAZOLE 40 MG VIAL IV SCH (08:12)
[2019-11-11] MEDS ORDERED: MAGNESIUM SULF RIDER 2 GM in PREMIX 1 EACH IV ONE (08:31)
[2019-11-11] MEDS ORDERED: POTASSIUM CHLORIDE 20 MEQ/15 ML UDCUP PO SCH (09:00)
[2019-11-11] MEDS ORDERED: SODIUM CHLORIDE 0.9% 1,000 ML IV PRN (10:02)
[2019-11-11] MEDS: HEPARIN DRIP 25,000 UNITS/500 ML PREMIX IV SCH ×2 (10:26→13:36)
[2019-11-11] MEDS ORDERED: POTASSIUM CHLORIDE 20 MEQ/15 ML UDCUP PER TUBE PRN (10:54)
[2019-11-11] MEDS ORDERED: POTASSIUM CHLORIDE 20 MEQ/15 ML UDCUP PER TUBE ONE (11:09)
[2019-11-11] MEDS: ATORVASTATIN 40 MG TABLET PO SCH (20:23)
[2019-11-11 20:58] LABS: Hematocrit 29.4 VOL% (35.7-47.0); Hemoglobin 9.6 GM/DL (12.0-16.0)
[2019-11-11 23:56] LABS: ABG Base Excess -3.6 MMOL/L (-2.5-2.5); ABG HCO3 21.3 MMOL/L (20-26); ABG Oxygen Saturation 92.2 % (95-100); ABG PCO2 44.2 MM HG (35-48); ABG PH 7.315 (7.35-7.45); ABG PO2 69.2 MM HG (80-95); ABG TCO2 20.8 MMOL/L (23-27)
[2019-11-12] MEDS: ALBUTEROL INHALER 18 GM INH SCH ×4 (01:18→18:01)
[2019-11-12 03:52] LABS: Allen Test Positive; Pt O2 Delivery Device Other
[2019-11-12 03:53] LABS: ABG Base Excess -3.2 MMOL/L (-2.5-2.5); ABG HCO3 21.6 MMOL/L (20-26); ABG Oxygen Saturation 91.4 % (95-100); ABG PCO2 44.5 MM HG (35-48); ABG PH 7.319 (7.35-7.45); ABG TCO2 21.2 MMOL/L (23-27)
[2019-11-12 04:18] LABS: Basophils # 0.1 10*3/uL (0.0-0.2); Basophils % 0.4 % (0.0-0.8); Eosinophils # 0.4 10*3/uL (0.0-0.87); Eosinophils % 1.6 % (0.00-10.9); Hematocrit 28.5 VOL% (35.7-47.0); Hemoglobin 9.4 GM/DL (12.0-16.0); Immature Granulocytes % 2.2 %; Immature Granulocytes Absolute 0.56 #; Lymphocytes # 1.2 10*3/uL (1.4-4.0); Lymphocytes % 4.8 % (21.3-54.2); Mean Corpuscular Volume 92.5 FL (87-102); Mean Platelet Volume 11.6 FL (9.6-12.0); Monocytes % 1.7 % (1.7-12.7); NRBC # 0.04 10*3/uL; Neutrophils % 89.3 % (38.7-73.9); Platelet Count 259 T/CUMM (130-400); Red Blood Count 3.08 MC/CUMM (3.8-5.5); Red Cell Distribution Width 18.5 % (9.3-17.3); White Blood Count 25.4 T/CUMM (4-12)
[2019-11-12 04:36] LABS: Calcium 8.9 MG/DL (8.5-10.1)
[2019-11-12] MEDS: NOREPINEPHRINE 8 MG in SODIUM CHLORIDE 0.9% 242 ML IV PRN ×2 (05:15→23:23)
[2019-11-12 05:31] LABS: Band Neutrophils 7 % (0-10); Hypochromasia 1+; Lymphocytes 3 % (20-55); Microcytosis 1+; Nucleated Red Blood Cells 1 (0-5); Platelet Estimate Adequate; Segmented Neutrophils 89 % (50-85); Total Cells Counted 100
[2019-11-12] MEDS: INSULIN LISPRO 100 UNIT/ML SUBCUT SCH ×3 (05:47→17:43)
[2019-11-12] MEDS: LEVOTHYROXINE 25 MCG TABLET PO SCH (05:47)
[2019-11-12] MEDS: PANTOPRAZOLE 40 MG VIAL IV SCH (08:04)
[2019-11-12] MEDS: methylPREDNISolone SOD SUC 40 MG/1 ML VIAL IV SCH (08:06)
[2019-11-12] MEDS: METOPROLOL TARTRATE 25 MG TABLET PO SCH ×2 (08:46→21:00)
[2019-11-12] MEDS: MULTIVITAMIN LIQUID (CENTRUM) 60 ML BOTTLE PO SCH (08:46)
[2019-11-12] MEDS: ASPIRIN 325 MG TABLET PO SCH (08:46)
[2019-11-12] MEDS ORDERED: POTASSIUM CHLORIDE 20 MEQ/15 ML UDCUP PER TUBE PRN (09:00)
[2019-11-12] MEDS: HEPARIN DRIP 25,000 UNITS/500 ML PREMIX IV SCH (10:06)
[2019-11-12] MEDS ORDERED: fentaNYL 25 MCG/HR PATCH TRANSDERM SCH (10:44)
[2019-11-12] MEDS ORDERED: MORPHINE 4 MG/1 ML VIAL IV PRN (10:45)
[2019-11-12] MEDS: MENTHOL/ZINC OXIDE OINT 71 GM JAR TOP SCH (11:10)
[2019-11-12] MEDS: DESITIN 4OZ/NYSTATIN 15 GRAM MIXTURE PASTE TOP SCH ×2 (11:10→21:00)
[2019-11-12] MEDS: ATORVASTATIN 40 MG TABLET PO SCH (21:00)
[2019-11-13] MEDS: INSULIN LISPRO 100 UNIT/ML SUBCUT SCH (00:46)
== END 2019-11-13 01:33 | disposition expired | DRG 870 ==
LOC: N.ED 16:55 → N.EDINP 19:45 → SUATTDRO 19:45 → N.EDINP 21:19 → N.2E 21:47 → N.CC 10-22 21:10
PROVIDERS: ADMIT Internal Medicine; ATTEND Internal Medicine